=== PATIENT | female | born 1940 | race Two or more races ===

== ENCOUNTER 2017-09-13 20:10 | Emergency (ER) | payer OTHER ==
[2017-09-13] MEDS ORDERED: NA CHLORIDE 0.9% 1,000 ML ONE (22:15)
[2017-09-13] MEDS ORDERED: ONDANSETRON 4 MG/2 ML VIAL ONE (22:15)
[2017-09-13 22:25] LABS: Absolute Lymphocytes (CBC) 1.4 K/uL (0.7-4.9); Absolute Monocytes 1.4 K/uL (0.1-1.3); Absolute Neutrophil 8.4 K/uL (1.8-8.0); Basophils % 0.1 % (0-1.3); Eosinophils % 0.2 % (0-4.4); Lymphocytes % 12.3 % (15.3-44.8); MCH 29.8 pg (27.0-35.0); MCV 89.7 fL (80-100); MPV 7.4 fL (7.6-11.3); Monocytes % 12.9 % (3.3-12.3); RBC Red Blood Cell Count 3.13 M/uL (3.86-4.86)
--- NOTE | 2017-09-13 22:29 | RAD REPORT ---
EXAM DESCRIPTION: RAD - Chest Single View - 09/13/2017 10:06 pm CLINICAL HISTORY: Cough, fever COMPARISON: None. TECHNIQUE: AP portable chest image was obtained 2154 hours . FINDINGS: Lungs are clear. Heart and vasculature are normal. No measurable pleural effusion and no p neumothorax. No gross bony abnormality seen. No acute aortic findings suspected. IMPRESSION: No acute cardiopulmonary process.
[2017-09-13 22:33] LABS: Protime INR 0.92
[2017-09-13 22:42] LABS: Albumin 3.1 g/dL (3.2-5.5); Bilirubin Direct 0.3 mg/dL (0-0.2); Bilirubin Total 0.8 mg/dL (0.3-1.2); Magnesium 1.8 mg/dL (1.8-2.5)
[2017-09-13 22:46] LABS: CKMB Creatine Kinase MB 1.4 ng/ml (0.3-4.0)
[2017-09-13 22:57] LABS: Potassium 3.5 mEq/L (3.6-5.0)
[2017-09-14 00:43] LABS: Urine Blood 2+ (NEG); Urine Glucose NEGATIVE (NEG); Urine Protein 1+ (NEG); Urine Specific Gravity 1.005 (1.005-1.030)
--- NOTE | 2017-09-14 00:51 | EDPHYS ---
Physician Documentation [facility] Name: Keenan Mancuso Age: 77 yrs Sex: Female : 1940 Arrival Date: 09/13/2017 Time: 20:11 Bed 24 Private MD: Kin Perez ED Physician Markos Madera HPI: 09/13 21:29 This 77 yrs old Female presents to ER via Ambulatory with complaints of Fever, Doesn't kav Feel Right. 09/14 00:45 The patient reports fever, that was measured at 102 degrees Fahrenheit, with an [facility] temperature of 98.3 degrees Fahrenheit. Onset: The symptoms/episode began/occurred acutely, 2 day(s) ago. Modifying factors: there are no obvious modifying factors. Associated signs and symptoms: Pertinent positives: nausea, vomiting. Associated signs and symptoms: Pertinent negatives: abdominal pain, altered mental status, chest pain, diarrhea, myalgias, night sweats, sinus congestion, sinus drainage, shortness of breath, swelling. Severity of symptoms: At their worst the symptoms were moderate just prior to arrival. The patient has not experienced similar symptoms in the past. The patient has not recently seen a physician. patient reports vomiting x 2 days, fever. denies chest pain, abdominal pain; pmhx: ckd. Historical: - Allergies: 09/13 20:23 Aspirin; aj 20:23 Codeine; aj - Home Meds: 20:23 losartan oral oral [Active]; Metoprolol Tartrate Oral [Active]; Actos Oral [Active]; aj Celebrex Oral [Active]; Synthroid Oral [Active]; Aspirin Oral [Active]; - PMHx: 20:23 Diabetes - NIDDM; gastric ulcers; High Cholesterol; Hypertension; Hypothyroidism; aj 09/14 00:16 Renal Disease; tl3 - PSHx: 09/13 20:23 Carpal Tunnel Repair; perforated ulcer- stomach; aj - Immunization history:: Adult Immunizations up to date. - Social history:: Smoking status: Patient/guardian denies using tobacco. - Family history:: not pertinent. - Hospitalizations: : No recent hospitalization is reported. ROS: 09/14 00:47 Eyes: Negative for injury, pain, redness, and discharge, ENT: Negative for injury, kav pain, and discharge, Neck: Negative for injury, pain, and swelling, Cardiovascular: Negative for chest pain, palpitations, and edema, Respiratory: Negative for shortness of breath, cough, wheezing, and pleuritic chest pain, Back: Negative for injury and pain, : Negative for injury, bleeding, discharge, and swelling, MS/Extremity: Negative for injury and deformity, Skin: Negative for injury, rash, and discoloration, Neuro: Negative for headache, weakness, numbness, tingling, and seizure, Psych: Negative for depression, anxiety, suicide ideation, homicidal ideation, and hallucinations, Allergy/Immunology: Negative for hives, rash, and allergies, Endocrine: Negative for neck swelling, polydipsia, polyuria, polyphagia, and marked weight changes, Hematologic/Lymphatic: Negative for swollen nodes, abnormal bleeding, and unusual bruising. Constitutional: Positive for fever, poor PO intake, Negative for body aches, chills, fatigue, malaise, weight loss. Abdomen/GI: Positive for nausea and vomiting. Exam: 00:47 Constitutional: This is a well developed, well nourished patient who is awake, alert, kav and in no acute distress. Head/Face: Normocephalic, atraumatic. Eyes: Pupils equal round and reactive to light, extra-ocular motions intact. Lids and lashes normal. Conjunctiva and sclera are non-icteric and not injected. Cornea within normal limits. Periorbital areas with no swelling, redness, or edema. ENT: Nares patent. No nasal discharge, no septal abnormalities noted. Tympanic membranes are normal and external auditory canals are clear. Oropharynx with no redness, swelling, or masses, exudates, or evidence of obstruction, uvula midline. Mucous membranes moist. Neck: Trachea midline, no thyromegaly or masses palpated, and no cervical lymphadenopathy. Supple, full range of motion without nuchal rigidity, or vertebral point tenderness. No Meningismus. Chest/axilla: Normal chest wall appearance and motion. Nontender with no deformity. No lesions are appreciated. Cardiovascular: Regular rate and rhythm with a normal S1 and S2. No gallops, murmurs, or rubs. Normal PMI, no JVD. No pulse deficits. Respiratory: Lungs have equal breath sounds bilaterally, clear to auscultation and percussion. No rales, rhonchi or wheezes noted. No increased work of breathing, no retractions or nasal flaring. Back: No spinal tenderness. No costovertebral tenderness. Full range of motion. Female : Normal external genitalia. Skin: Warm, dry with normal turgor. Normal color with no rashes, no lesions, and no evidence of cellulitis. MS/ Extremity: Pulses equal, no cyanosis. Neurovascular intact. Full, normal range of motion. Neuro: Awake and alert, GCS 15, oriented to person, place, time, and situation. Cranial nerves II-XII grossly intact. Motor strength 5/5 in all extremities. Sensory grossly intact. Cerebellar exam normal. Normal gait. 00:47 Abdomen/GI: Bowel sounds: normal, in all quadrants, Palpation: abdomen is soft and non-tender, in all quadrants. Vital Signs: 09/13 20:23 BP 132 / 56; Pulse 105; Resp 21; Temp 98.3; Pulse Ox 98% on R/A; Weight 50.8 kg; Height aj 4 ft. 11 in. (149.86 cm); 20:30 BP 127 / 56; Pulse 89; Resp 16; Pulse Ox 98% on R/A; tl3 22:38 BP 138 / 62; Pulse 85; Resp 18; Pulse Ox 100% on R/A; tl3 09/14 00:15 BP 110 / 44; Pulse 82; Resp 18; Pulse Ox 98% on R/A; tl3 09/13 20:23 Body Mass Index 22.62 (50.80 kg, 149.86 cm) aj MDM: 09/13 21:30 Medical screening is not applicable. [facility] 09/14 00:47 Data reviewed: vital signs, nurses notes, lab test result(s), radiologic studies. [facility] 09/13 21:32 Order name: Basic Metabolic Panel; Complete Time: 23:05 [facility] 09/13 23:05 Interpretation: GLUC 126; CA 8.1; BUN 23; CRE 1.42; GFR 36; NA 122; K 3.5; CL 90. [facility] 09/13 21:32 Order name: BNP; Complete Time: 23:06 [facility] 09/13 23:06 Interpretation: Within normal limits. [facility] 09/13 21:32 Order name: CBC with Diff; Complete Time: 23:06 [facility] 09/13 23:07 Interpretation: WBC 11.2; RBC 3.13; HGB 9.3; HCT 28.0; MPV 7.4; PAMELLA% 74.5; LYM% 12.3; kav MN% 12.9; NEUT A 8.4; MNA 1.4. 09/13 21:33 Order name: Ckmb; Complete Time: 23:06 [facility] 09/13 23:06 Interpretation: Within normal limits. 09/13 21:33 Order name: CPK; Complete Time: 23:06 [facility] 09/13 23:06 Interpretation: Within normal limits. 09/13 21:33 Order name: LFT's; Complete Time: 23:06 [facility] 09/13 23:06 Interpretation: ALK 126; BILID 0.3; ALB 3.1; GLOB 3.9; A/G 0.8. 09/13 21:33 Order name: Magnesium; Complete Time: 23:06 [facility] 09/13 23:06 Interpretation: Within normal limits. 09/13 20:33 Order name: PT-INR; Complete Time: 23:06 [facility] 09/13 23:06 Interpretation: Within normal limits. 09/13 20:33 Order name: Ptt, Activated; Complete Time: 23:06 [facility] 09/13 23:06 Interpretation: Within normal limits. 09/13 21:33 Order name: Troponin (emerg Dept Use Only); Complete Time: 23:05 [facility] 09/13 23:05 Interpretation: Within normal limits. 09/13 21:33 Order name: XRAY Chest (1 view); Complete Time: 23:05 [facility] 09/13 23:05 Interpretation: No acute disease. [facility] 09/13 22:34 Order name: Urine Dipstick--Ancillary (enter results); Complete Time: 00:45 eb 09/14 00:45 Interpretation: UBLD 2+; UPROT 1+; UESTR 2+. [facility] 09/13 23:35 Order name: UA MICROSCOPIC tl3 09/13 23:36 Order name: Urine Microscopic Only EDMS 09/13 21:33 Order name: EKG; Complete Time: 21:33 [facility] 09/13 21:33 Order name: Cardiac monitoring; Complete Time: 22:58 [facility] 09/13 21:33 Order name: EKG - Nurse/Tech; Complete Time: 22:58 v 09/13 21:33 Order name: IV Saline Lock; Complete Time: 22:11 kav 09/13 21:33 Order name: Labs collected and sent; Complete Time: 22:11 kav 09/13 21:33 Order name: O2 Per Protocol; Complete Time: 22:11 kav 09/13 21:33 Order name: O2 Sat Monitoring; Complete Time: 22:11 kav 09/13 21:33 Order name: Urine Dipstick-Ancillary (obtain specimen); Complete Time: 23:10 kav Administered Medications: 09/13 22:30 Drug: NS 0.9% 1000 ml Route: IV; Rate: 1 bolus; Site: left wrist; Delivery: Primary tl3 tubing; 23:30 Follow up: IV Status: Completed infusion; IV Intake: 1000ml tl3 22:30 Drug: Zofran 4 mg Route: IVP; Infused Over: 2 mins; Site: left wrist; tl3 09/14 00:59 Follow up: Response: No adverse reaction tl3 09/13 23:34 Drug: NS 0.9% 1000 ml Route: IV; Rate: 1 bolus; Site: left wrist; Delivery: Primary tl3 tubing; 09/14 00:37 Follow up: IV Status: Completed infusion; IV Intake: 1000ml tl3 Disposition: 06:45 Co-signature as Attending Physician, Markos Madera MD I agree with the assessment and girish plan of care. Disposition: 09/14/17 00:51 Discharged to Home. Impression: Urinary tract infection, site not specified, Dehydration, Chronic kidney disease (CKD), Hypo-osmolality and hyponatremia. - Condition is Stable. - Discharge Instructions: Hyponatremia, Urinary Tract Infection, Bnrn-ae-[id number], Antibiotic Use, Jnws-ta-Oewq, Dehydration, Adult, [id number]-Cllx, Rehydration, Adult. - Prescriptions for Cipro 500 mg Oral Tablet - take 1 tablet by ORAL route every 12 hours for 7 days; 14 tablet. - Medication Reconciliation Form, Thank You Letter, Antibiotic Education, Prescription Opioid Use form. - Follow up: Kin Perez MD; When: 5 - 6 days; Reason: Recheck today's complaints, Continuance of care, Re-evaluation by your physician. - Problem is new. - Symptoms have improved. - Notes: clear pedialyte 8 oz three times a day x 2 days f/u with dr. perez Signatures: Dispatcher [employer] Janel Holt RN RN Markos Garza MD MD cha Vern, Katherine, MARKETING EXECUTIVE MARKETING EXECUTIVE Alexa Hyatt, RN RN tl3 Corrections: (The following items were deleted from the chart) 09/13 23:05 23:05 Normal except: GLUC 126; CA 8.1; BUN 23; CRE 1.42; GFR 36; NA 122; K 3.5. kav kav 23:06 23:06 Within normal limits. kav kav 23:07 23:06 Normal except: WBC 11.2; RBC 3.13; HGB 9.3; HCT 28.0; MPV 7.4; PAMELLA% 74.5; LYM% kav 12.3; MN% 12.9; NEUT A 8.4. kav 23:07 23:06 OrderId: [id number] PrecursorText: InterpretationText: kav kav 09/14 00:45 00:45 Normal except: UBLD 2+; UPROT 1+; UESTR 2+. kav kav 00:51 00:51 09/14/2017 00:51 Discharged to Home. Impression: Urinary tract infection, site kav not specified; Dehydration; Chronic kidney disease (CKD). Condition is Stable. Forms are Medication Reconciliation Form, Thank You Letter, Antibiotic Education, Prescription Opioid Use. Follow up: Kin Perez; When: 5 - 6 days; Reason: Recheck today's complaints, Continuance of care, Re-evaluation by your physician. Problem is new. Symptoms have improved. kav 00:59 00:51 09/14/2017 00:51 Discharged to Home. Impression: Urinary tract infection, site tl3 not specified; Dehydration; Chronic kidney disease (CKD); Hypo-osmolality and hyponatremia. Condition is Stable. Forms are Medication Reconciliation Form, Thank You Letter, Antibiotic Education, Prescription Opioid Use. Follow up: Kin Perez; When: 5 - 6 days; Reason: Recheck today's complaints, Continuance of care, Re-evaluation by your physician. Problem is new. Symptoms have improved. kav
--- NOTE | 2017-09-14 00:51 | ER ---
Nurse's Notes [facility] Name: Keenan Mancuso Age: 77 yrs Sex: Female : 1940 Arrival Date: 09/13/2017 Time: 20:11 Bed 24 Private MD: Kin Colvin Diagnosis: Urinary tract infection, site not specified;Dehydration;Chronic kidney disease (CKD);Hypo-osmolality and hyponatremia Presentation: 09/13 20:22 Presenting complaint: Patient states: Fever since Sunday. Given Tylenol at 1915. aj Transition of care: patient was not received from another setting of care. Onset of symptoms was September 10, 2017. Care prior to arrival: None. 20:22 Method Of Arrival: Ambulatory 20:22 Acuity: JULIANE 3 09/14 00:58 Initial Sepsis Screen: Does the patient meet any 2 criteria? No. Patient's initial tl3 sepsis screen is negative. Does the patient have a suspected source of infection? No. Patient's initial sepsis screen is negative. Triage Assessment: 09/13 20:23 General: Appears in no apparent distress. comfortable, Behavior is calm, cooperative, aj appropriate for age. Pain: Denies pain. Neuro: Level of Consciousness is awake, alert, obeys commands, Oriented to person, place, time, situation, Appropriate for age. Respiratory: Airway is patent Respiratory effort is even, unlabored, Respiratory pattern is regular, symmetrical. Derm: Skin is intact, is healthy with good turgor, Skin is pink, warm \T\ dry. normal. Historical: - Allergies: 20:23 Aspirin; aj 20:23 Codeine; aj - Home Meds: 20:23 losartan oral oral [Active]; Metoprolol Tartrate Oral [Active]; Actos Oral [Active]; aj Celebrex Oral [Active]; Synthroid Oral [Active]; Aspirin Oral [Active]; - PMHx: 20:23 Diabetes - NIDDM; gastric ulcers; High Cholesterol; Hypertension; Hypothyroidism; aj 09/14 00:16 Renal Disease; tl3 - PSHx: 09/13 20:23 Carpal Tunnel Repair; perforated ulcer- stomach; aj - Immunization history:: Adult Immunizations up to date. - Social history:: Smoking status: Patient/guardian denies using tobacco. - Family history:: not pertinent. - Hospitalizations: : No recent hospitalization is reported. Screenin:30 Abuse screen: Denies threats or abuse. Nutritional screening: No deficits noted. tl3 Tuberculosis screening: No symptoms or risk factors identified. Fall Risk None identified. Assessment: 20:30 General: Appears uncomfortable, slender, well groomed, well developed, well nourished, tl3 Behavior is calm, cooperative, appropriate for age. Pain: Complains of pain in abdomen. Neuro: Level of Consciousness is awake, alert, obeys commands, Oriented to person, place, time, situation, Appropriate for age. Cardiovascular: Heart tones S1 S2 present Patient's skin is warm and dry. Respiratory: Airway is patent Trachea midline Respiratory effort is even, unlabored, Respiratory pattern is regular, symmetrical. GI: Reports nausea. : No signs and/or symptoms were reported regarding the genitourinary system. EENT: No signs and/or symptoms were reported regarding the EENT system. Derm: No signs and/or symptoms reported regarding the dermatologic system. Musculoskeletal: No signs and/or symptoms reported regarding the musculoskeletal system. 22:38 Reassessment: Patient appears in no apparent distress at this time. No changes from tl3 previously documented assessment. Patient and/or family updated on plan of care and expected duration. Pain level reassessed. Patient is alert, oriented x 3, equal unlabored respirations, skin warm/dry/pink. IV infusing without difficulty, daughter at bedside. 09/14 00:15 Reassessment: Patient appears in no apparent distress at this time. No changes from tl3 previously documented assessment. Patient and/or family updated on plan of care and expected duration. Pain level reassessed. Patient is alert, oriented x 3, equal unlabored respirations, skin warm/dry/pink. Vital Signs: 09/13 20:23 BP 132 / 56; Pulse 105; Resp 21; Temp 98.3; Pulse Ox 98% on R/A; Weight 50.8 kg; Height aj 4 ft. 11 in. (149.86 cm); 20:30 BP 127 / 56; Pulse 89; Resp 16; Pulse Ox 98% on R/A; tl3 22:38 BP 138 / 62; Pulse 85; Resp 18; Pulse Ox 100% on R/A; tl3 09/14 00:15 BP 110 / 44; Pulse 82; Resp 18; Pulse Ox 98% on R/A; tl3 09/13 20:23 Body Mass Index 22.62 (50.80 kg, 149.86 cm) ED Course: 09/13 20:11 Patient arrived in ED. am2 20:11 Kin Colvin MD is Private Physician. am2 20:22 Triage completed. aj 20:23 Arm band placed on left wrist. Patient placed in an exam room. aj 20:30 Patient has correct armband on for positive identification. Bed in low position. Call tl3 light in reach. Side rails up X 1. Adult w/ patient. Pulse ox on. NIBP on. Warm blanket given. 20:30 No provider procedures requiring assistance completed. tl3 21:00 No apparent distress. tl3 21:00 Inserted saline lock: 20 gauge in left wrist, using aseptic technique. Blood collected. tl3 21:29 Lucita Dove FNP is PHCP. kav 21:29 Markos Madera MD is Attending Physician. kav 21:30 Lucita Dove FNP is PHCP. kav 21:30 Lucita Dove FNP is PHCP. kav 22:03 X-ray completed. Portable x-ray completed in exam room. Patient tolerated procedure sw well. 22:05 XRAY Chest (1 view) In Process Unspecified. EDMS 22:08 Alexa Pa, RN is Primary Nurse. tl3 09/14 00:37 UA MICROSCOPIC Sent. tl3 00:50 Kin Colvin MD is Referral Physician. kav 00:58 IV discontinued, intact, bleeding controlled, No redness/swelling at site. Pressure tl3 dressing applied. Administered Medications: 09/13 22:30 Drug: NS 0.9% 1000 ml Route: IV; Rate: 1 bolus; Site: left wrist; Delivery: Primary tl3 tubing; 23:30 Follow up: IV Status: Completed infusion; IV Intake: 1000ml tl3 22:30 Drug: Zofran 4 mg Route: IVP; Infused Over: 2 mins; Site: left wrist; tl3 09/14 00:59 Follow up: Response: No adverse reaction tl3 09/13 23:34 Drug: NS 0.9% 1000 ml Route: IV; Rate: 1 bolus; Site: left wrist; Delivery: Primary tl3 tubing; 09/14 00:37 Follow up: IV Status: Completed infusion; IV Intake: 1000ml tl3 Intake: 09/13 23:30 IV: 1000ml; Total: 1000ml. tl3 09/14 00:37 IV: 1000ml; Total: 2000ml. tl3 Outcome: 00:51 Discharge ordered by MD. acosta 00:58 Discharged to home ambulatory. tl3 00:58 Condition: stable 00:58 Discharge instructions given to patient, family, Instructed on discharge instructions, follow up and referral plans. medication usage, Demonstrated understanding of instructions, follow-up care, medications, Prescriptions given X 1. 00:59 Patient left the ED. tl3 Addendum: 09/17/2017 09:14 Addendum: Culture Results: Positive urine culture. No further action required. Bacteria i w sensitive to prescribed antibiotic. Signatures: Dispatcher [employer] Janel Holt RN RN aj Vern, Katherine, AUTOMOTIVE CENTER MANAGER AUTOMOTIVE CENTER MANAGER Lilliana Villegas RN RN iw Warren, Shannon sw Moreno, Amanda am2 Lowrey, Tammy, RN RN tl3
[2017-09-14 01:05] LABS: Urine Bacteria >50 /HPF (<20); Urine Culture Reflex Order REFLEXED
[2017-09-14 01:06] LABS: Urine RBC <5 /HPF (NONE SEEN)
--- NOTE | 2017-09-14 15:41 | EKG ---
Test Date: 2017-09-13 Test Time: 22:54:39 Smearer: SAVANNA MEASUREMENT RESULTS: Intervals: Rate: 83 NC: 168 QRSD: 92 QT: 388 QTc: 455 [place]: P: 43 NC: 168 QRS: 59 T: 32 INTERPRETIVE STATEMENTS: Normal sinus rhythm Normal ECG No previous ECG available for comparison Electronically Signed On 09-14-17 15:40:42 CDT by Hudson Cortez
== END 2017-09-14 00:59 | disposition home or self-care (01) ==
LOC: ER 20:10
DX: N39.0 Urinary tract infection, site not specified (principal); E86.0 Dehydration; N18.9 Chronic kidney disease, unspecified; E87.1 Hypo-osmolality and hyponatremia; Z88.6 Allergy status to analgesic agent; E11.9 Type 2 diabetes mellitus without complications; E03.9 Hypothyroidism, unspecified; I10 Essential (primary) hypertension; E78.00 Pure hypercholesterolemia, unspecified
CPT/HCPCS: 36415; 71045; 80048; 80076; 82550; 82553; 83735; 83880; 84484; 85025; 85610; 85730; 87077 ×2; 87086; 87088; 87186 ×2; 93005; 96361; 96374; 99284; J2405; J7030; 81003; 81015

== ENCOUNTER 2019-01-18 12:07 | Emergency (ER) | payer OTHER ==
--- OUTSIDE RECORDS SUMMARY | 2019-01-18 12:12 | XMS REPORT | Summary of Care ---
:1940 Author Organization [facility] Address [address] [place] [address] Encounter [facility] [id number] Date(s): 07/10/17 - 07/10/17 [facility] [address] [place] [address]- Final: Unilateral primary osteoarthritis, left knee Discharge Disposition: Discharged to Home or Self Care Attending Physician: Wilner Garcia MD Admitting Physician: Wilner Garcia MD Referring Physician: Wilner Garcia MD Vital Signs No data available for this section Problem List No data available for this section Allergies, Adverse Reactions, Alerts No data available for this section Medications No data available for this section Results No data available for this section Immunizations No data available for this section Procedures No data available for this section Social History No data available for this section Assessment and Plan No data available for this section
--- OUTSIDE RECORDS SUMMARY | 2019-01-18 12:12 | XMS REPORT | Continuity of Care Document ---
:1940 Author Organization [employer] Care Team Providers Name Role Phone Plum Baby Unavailable Unavailable Problems Problem Status Onset Classification Date Comments Source Date Reported Unilateral primary 08/24/2017 [facility] osteoarthritis, left 018 knee RT TOTAL KNEE Active Condition 05/29/2013 [facility] ARTHROPLAST[facility] OSTEOARTHRITIS KNEE Active [facility] RT, KNEE PAIN RT -- 013 [place] 715.96 - OSTEOARTHROS Active [facility] OPID [place] 012 [facility] HYPERTENSION Active Condition 05/29/2013 [facility] HYPERCHOLESTEROLEMIA Active Condition 05/29/2013 [facility] DIABETES, TYPE II Active Condition 05/29/2013 [place] [facility] ASTHMA Active Condition 05/29/2013 [place] [facility] Diabetes mellitus Active Problem 08/24/2017 bs range - [facility] (disorder) 004 140's Gastric ulcer Resolved Problem 08/24/2017 [facility] (disorder) 991 Hypertensive disorder, Active Problem 08/24/2017 mon by pcp- [facility] systemic arterial 974 denies any (disorder) other cardiac problems Arthritis (disorder) Active Problem 08/24/2017 [facility] Urinary bladder Active Problem 08/24/2017 [facility] structure (body structure) Cholesterol Active Problem 08/24/2017 [facility] (substance) Hand pain (finding) Active Problem 08/24/2017 [facility] Hypothyroidism Active Problem 08/24/2017 [facility] (disorder) Knee pain (finding) Active Problem 08/24/2017 LEFT [facility] Chronic kidney disease Active Problem 08/24/2017 stage 3- [facility] (disorder) reports no problems, states due to HTN. No dialysis KNEE PAIN, RIGHT Active Condition 05/29/2013 [facility] OSTEOARTHRITIS, KNEE, Active Condition 05/29/2013 [facility] CONTUSION, RIGHT KNEE Active Condition 05/29/2013 [facility] Acute peptic ulcer Resolved Problem 07/06/2012 [place] Carpal tunnel Inactive Problem 07/06/2012 [place] Cataract Resolved Problem 07/06/2012 [place] Diabetes mellitus Active Problem 07/06/2012 [place] Disc Active Problem 07/06/2012 [place] Hyperlipidemia Active Problem 07/06/2012 [place] Hypertension Active Problem 07/06/2012 [place] Hyperthyroidism Resolved Problem 07/06/2012 [place] Incontinence Active Problem 07/06/2012 [facility] medication [place] OSTEOARTHROS NOS-L/LEG Active [place] SINGLE LB/BY Active [place] Medications Medication Details Route Status Patient Ordering Order Source Instructions Provider Date Thyroxine 50 mcg=2 tabs, No Longer [facility] Tab, Oral, Active 2018 Every other day, first dose 08/23/17 6:30:00 CDT, Give M/W/F and alternate everyother day with 75 mcg NS bolus 250 mL 250 mL, IV, Inactive [facility] BOLUS, other 2018 (see comment), start date 08/22/17 18:36:00 CDT Aspirin 325 mg=1 tabs, Inactive [facility] Tab, Oral, BID, 2017 first dose 08/22/17 9:00:00 CDT multivitamin with 1 tabs, Tab, Inactive [facility] minerals Oral, Daily, 2018 first dose 08/22/17 9:00:00 CDT hydroCHLOROthiazid 25 mg=1 tabs, Inactive [facility] e Tab, Oral, 2018 Daily, first dose 08/22/17 9:00:00 CDT Cozaar 100 mg=2 tabs, Inactive 08/22/ [facility] Tab, Oral, 2018 Daily, first dose 08/22/17 9:00:00 CDT ferrous sulfate 325 mg=1 tabs, Inactive 08/22/ [facility] Tab, Oral, 2018 TIDWM, first dose 08/22/17 8:00:00 CDT Synthroid 50 mcg=2 tabs, Inactive 08/22/ [facility] Tab, Oral, 2018 Every other day, first dose 08/22/17 6:30:00 CDT, Give M/W/F and alternate everyother day with 75 mcg Thyroxine 88 mcg=1 tabs, No Longer [facility] Tab, Oral, Active 2017 Daily, first dose 08/22/17 6:30:00 CDT, Patient's Own Meds Cefazolin 1 gm, Soln-IV, No Longer [facility] IV Piggyback, Active 2017 q8hr, infuse over 30 minutes, order duration: 3 doses, first dose 08/21/17 23:30:00 CDT, stop date 08/22/17 23:29:00 CDT, DC THIS ORDER IF DOCUMENTED ANCEF ALLERGY, Prophylaxis Clindamycin 600 mg, Inactive I Soln-IV, IV 2018 Piggyback, q8hr, infuse over 30 minutes, order duration: 3 doses, first dose 08/21/17 22:00:00 CDT, stop date 08/22/17 21:59:00 CDT, GIVE ONLY IF ANCEF ALLERGIC, Prophylaxis Colace 100 mg=1 caps, No Longer [facility] Cap, Oral, BID, Active 2017 first dose 08/21/17 21:00:00 CDT Celebrex 200 mg=2 caps, No Longer [facility] Cap, Oral, BID, Active 2017 first dose 08/21/17 21:00:00 CDT Amlodipine 10 mg=2 tabs, Inactive [facility] Tab, Oral, 2018 Once, first dose 08/21/17 21:00:00 CDT, stop date 08/21/17 21:00:00 CDT Simvastatin 20 mg=1 tabs, No Longer [facility] Tab, Oral, qHS, Active 2017 first dose 08/21/17 21:00:00 CDT Clonidine 0.1 mg=1 tabs, No Longer [facility] Tab, Oral, q6hr Active 2017 PRN for hypertension, first dose 08/21/17 20:39:00 CDT Saline Lock Flush 10 mL, Soln, IV No Longer [facility] Push, q8hr, Active 2017 first dose 08/21/17 19:00:00 CDT Normal Saline 1,000 mL, IV, No Longer [facility] 1,000 mL 75 mL/hr, start Active 2017 date 08/21/17 18:53:00 CDT Tramadol 50 mg=1 tabs, No Longer [facility] Tab, Oral, q6hr 2017 PRN for pain mild-moderate (1-6), first dose 08/21/17 18:36:00 CDT Diphenhydramine 25 mg=1 caps, No Longer [facility] Cap, Oral, q8hr 2017 PRN for itching, first dose 08/21/17 18:36:00 CDT Morphine 2 mg=1 mL, No Longer [facility] Injection, IV 2017 Push, q3hr PRN for breakthrough pain, first dose 08/21/17 18:36:00 CDT Promethazine 25 mg=1 mL, No Longer [facility] Injection, IM, 2017 q4hr PRN for severe nausea, first dose 08/21/17 18:36:00 CDT Ondansetron 4 mg=2 mL, No Longer [facility] Injection, IV 2017 Push, q8hr PRN for nausea/vomiting , first dose 08/21/17 18:36:00 CDT Bupivacaine 0.25% 300 mL, Nerve No Longer [facility] 300 mL pump 300 mL Block, 5 mL/hr, 2017 start date 08/21/17 18:29:00 CDT Saline Lock Flush 10 mL, Soln, IV No Longer [facility] Push, As 2017 Indicated PRN for flush, first dose 08/21/17 18:12:00 CDT Flu Shot PF 0.5 mL, No Longer [facility] Injection, IM, 2017 Once PRN for other (see comment), first dose 08/21/17 18:12:00 CDT Bisacodyl 10 mg=2 tabs, No Longer [facility] Tab-DR, Oral, 2017 Daily PRN for constipation, first dose 08/21/17 18:12:00 CDT LR 1,000 mL 1,000 mL, IV, Inactive [facility] 75 mL/hr, start 2017 date 08/21/17 18:12:00 CDT Promethazine 12.5 mg=0.5 mL, Inactive [facility] Injection, IM, 2018 Once PRN for vomiting, first dose 08/21/17 18:03:00 CDT Levalbuterol 0.21 0.63 mg=3 mL, Inactive [facility] MG/ML Inhalant Soln, NEB, Once 2018 Solution [Xopenex] PRN for wheezing, first dose 08/21/17 18:03:00 CDT Ondansetron 4 mg=2 mL, Inactive [facility] Injection, IV 2018 Push, q15min PRN for nausea, order duration: 2 doses, first dose 08/21/17 18:03:00 CDT, stop date Limited # of times Hydralazine 5 mg=0.25 mL, Inactive [facility] Injection, IV 2018 Push, As Indicated PRN for hypertension, first dose 08/21/17 18:03:00 CDT Labetalol 5 mg=1 mL, Inactive [facility] Injection, IV 2018 Push, As Indicated PRN for hypertension, first dose 08/21/17 18:03:00 CDT Albuterol 0.83 2.5 mg=3 mL, Inactive [facility] MG/ML Inhalant Soln, NEB, Once 2018 Solution PRN for wheezing, first dose 08/21/17 18:03:00 CDT Demerol HCl 12.5 mg=0.5 mL, Inactive [facility] Injection, IV 2018 Push, Once PRN for shivers, first dose 08/21/17 18:03:00 CDT Dilaudid 0.2 mg=0.2 mL, Inactive [facility] Injection, IV 2018 Push, q10min PRN for pain severe (7-10), first dose 08/21/17 18:03:00 CDT Bupivacaine 0.25% 300 mL, Nerve Inactive [facility] 300 mL pump 300 mL Block, 5 mL/hr, 2018 start date 08/21/17 18:03:00 CDT Robinul 0.2 mg=1 mL, Inactive [facility] Injection, IV 2018 Push, Once PRN for bradycardia, first dose 08/21/17 18:03:00 CDT, Heart Rate Saline Lock Flush 10 mL, Soln, IV Inactive [facility] Push, As 2018 Indicated PRN for flush, first dose 08/21/17 18:03:00 CDT LR 1,000 mL 1,000 mL, IV, Inactive [facility] 75 mL/hr, start 2018 date 08/21/17 18:03:00 CDT Lactated Ringers IV, start date Inactive 08/21/ [facility] Injection 08/21/172017 17:58:00 CDT, stop date 08/21/17 17:58:00 CDT fentaNYL 25 mcg=0.5 mL, Inactive [facility] Injection, IV, 2017 Once, first dose 08/21/17 17:46:00 CDT, stop date 08/21/17 17:46:00 CDT phenylephrine 0.1 mg=0.01 mL, Inactive [facility] Injection, IV, 2017 Once, first dose 08/21/17 17:21:00 CDT, stop date 08/21/17 17:21:00 CDT phenylephrine 0.1 mg=0.01 mL, Inactive [facility] Injection, IV, 2017 Once, first dose 08/21/17 17:11:00 CDT, stop date 08/21/17 17:11:00 CDT ondansetron 4 mg=2 mL, Inactive [facility] Injection, IV, 2017 Once, first dose 08/21/17 17:10:00 CDT, stop date 08/21/17 17:10:00 CDT fentaNYL 25 mcg=0.5 mL, Inactive [facility] Injection, IV, 2017 Once, first dose 08/21/17 16:34:00 CDT, stop date 08/21/17 16:34:00 CDT insulin regular 3 - 15 units, No Longer I sliding scale Injection, Active 2017 [facility] Subcutaneous, QIDACHS, first dose 08/21/17 16:30:00 CDT midazolam 1 mg=1 mL, Inactive [facility] Injection, IV, 2017 Once, first dose 08/21/17 16:13:00 CDT, stop date 08/21/17 16:13:00 CDT fentaNYL 50 mcg=1 mL, Inactive [facility] Injection, IV, 2017 Once, first dose 08/21/17 16:13:00 CDT, stop date 08/21/17 16:13:00 CDT phenylephrine 0.1 mg=0.01 mL, Inactive [facility] Injection, IV, 2018 Once, first dose 08/21/17 16:08:00 CDT, stop date 08/21/17 16:08:00 CDT tranexamic acid 600 mg=6 mL, Inactive [facility] Soln, IV, Once, 2018 first dose 08/21/17 16:06:00 CDT, stop date 08/21/17 16:06:00 CDT ePHEDrine 10 mg=0.2 mL, Inactive [facility] Injection, IV, 2018 Once, first dose 08/21/17 16:04:00 CDT, stop date 08/21/17 16:04:00 CDT acetaminophen 1,000 mg, Inactive [facility] Soln-IV, IV 2018 Piggyback, Once, first dose 08/21/17 16:02:00 CDT, stop date 08/21/17 16:02:00 CDT ePHEDrine 5 mg=0.1 mL, Inactive [facility] Injection, IV, 2018 Once, first dose 08/21/17 15:58:00 CDT, stop date 08/21/17 15:58:00 CDT ceFAZolin 2 gm, Soln-IV, Inactive [facility] IV Piggyback, 2018 Once, first dose 08/21/17 15:55:00 CDT, stop date 08/21/17 15:55:00 CDT dexamethasone 8 mg=2 mL, Inactive [facility] Injection, IV, 2018 Once, first dose 08/21/17 15:53:00 CDT, stop date 08/21/17 15:53:00 CDT propofol 100 mg=10 mL, Inactive [facility] Emulsion, IV, 2018 Once, first dose 08/21/17 15:45:00 CDT, stop date 08/21/17 15:45:00 CDT lidocaine 3 mL, Inactive [facility] Injection, IV, 2018 Once, first dose 08/21/17 15:45:00 CDT, stop date 08/21/17 15:45:00 CDT Misc Medication 1,000 mL, Inactive [facility] Soln-IV, IV, 2018 Once, first dose 08/21/17 15:40:00 CDT, stop date 08/21/17 15:40:00 CDT midazolam 1 mg=1 mL, Inactive [facility] Injection, IV, 2018 Once, first dose 08/21/17 15:36:00 CDT, stop date 08/21/17 15:36:00 CDT fentaNYL 50 mcg=1 mL, Inactive [facility] Injection, IV, 2018 Once, first dose 08/21/17 15:36:00 CDT, stop date 08/21/17 15:36:00 CDT celecoxib 200 MG 200 mg=1 caps, Active [facility] Oral Capsule Oral, Daily, # 2018 [Celebrex] 30 caps, 3 Refill(s) gabapentin 300 MG 300 mg=1 caps, Active [facility] Oral Capsule Oral, qHS, # 14 2018 caps Aspirin 81 MG Oral 81 mg=1 tabs, Active [facility] Tablet Oral, BID, take 2018 for 6 weeks Docusate Sodium 100 mg=1 caps, Active [facility] 100 MG Oral Oral, BID 2018 Capsule [Colace] Acetaminophen 325 1 tabs, Oral, Active [facility] MG / Hydrocodone q6hr, PRN as 2018 Bitartrate 10 MG needed for Oral Tablet [[place] pain, # 90 10/325] tabs, 0 Refill(s) gabapentin 300 mg=1 caps, No Longer [facility] Cap, Oral, TID, Active 2018 first dose 08/21/17 14:00:00 CDT Celebrex 400 mg=4 caps, Inactive [facility] Cap, Oral, 2018 Once, first dose 08/21/17 14:00:00 CDT, stop date 08/21/17 14:00:00 CDT Cefazolin 2 gm, Soln-IV, Inactive [facility] IV Piggyback, 2018 Once, infuse over 30 minutes, first dose 08/21/17 14:00:00 CDT, stop date 08/21/17 14:00:00 CDT, patient weight 50-120 kg, Prophylaxis Neurontin 300 mg=1 caps, Inactive [facility] Cap, Oral, 2018 Once, first dose 08/21/17 14:00:00 CDT, stop date 08/21/17 14:00:00 CDT, Give 1 hour pre-operatively Lidocaine 2% 0.2 0.2 mL, Inactive mL IV Start Injection, 2017 [[facility]] Subcutaneous, Once PRN for other (see comment), first dose 08/21/17 13:17:00 CDT LR 1,000 mL 1,000 mL, IV, Inactive I 30 mL/hr, start 2018 date 08/21/17 13:17:00 CDT Oxycontin 10 mg=1 tabs, Inactive Tab-ER, Oral, 2017 Pre Op, first dose 08/21/17 13:17:00 CDT Tranexamic Acid 1 gm, Soln, IV, Inactive As Indicated, 2017 first dose 08/21/17 13:17:00 CDT, 30 min prior to incision and at closure Detrol LA 4 mg 4 mg, Misc, No Longer oral capsule, Oral, Daily, Active 2017 extended release first dose 08/21/17 9:00:00 CDT, Patient's Own Meds Actos 30 mg=1 tabs, No Longer I Tab, Oral, Active 2017 Daily, first dose 08/21/17 9:00:00 CDT, Patient's Own Meds Metoprolol 100 mg=4 tabs, No Longer [facility] Tab-ER, Oral, Active 2017 Daily, first dose 08/21/17 9:00:00 CDT hydrochlorothiazid 1 tabs, Misc, Inactive e-losartan 25 Oral, Daily, 2018 mg-100 mg oral first dose tablet 08/21/17 9:00:00 CDT, Patient's Own Meds Amlodipine 10 mg=2 tabs, No Longer [facility] Tab, Oral, Active 2017 Daily, first dose 08/21/17 9:00:00 CDT amLODIPine 10 mg 10 mg=1 tabs, Active [facility] oral tablet Oral, Daily, 2018 take am of procedure, 0 Refill(s), HTN simvastatin 20 mg 20 mg=1 tabs, Active [facility] oral tablet Oral, qHS, 0 2017 Refill(s), cholesterol levothyroxine 88 88 mcg=1 caps, Active [facility] mcg (0.088 mg) Oral, Daily, 0 2017 oral capsule Refill(s), thyroid 24 HR tolterodine 4 mg=1 caps, Active 07/31/ [facility] tartrate 4 MG Oral, Daily, 0 2017 Extended Release Refill(s), Capsule [Detrol] bladder Hydrochlorothiazid 1 tabs, Oral, Active [facility] e 25 MG / Losartan Daily, do not 2018 Potassium 100 MG take am of Oral Tablet procedure, 0 Refill(s), HTN 24 HR Metoprolol 100 mg=1 tabs, Active 07/31/ [facility] Tartrate 100 MG Oral, Daily, 2018 Extended Release take am of Tablet procedure, 0 Refill(s), HTN pioglitazone 30 MG 30 mg=1 tabs, Active 07/31/ [facility] Oral Tablet Oral, Daily, 0 2017 [Actos] Refill(s), DM gabapentin 300 MG 300 mg=1 caps, Active [facility] Oral Capsule Oral, TID, 0 2017 Refill(s), hand nerve pain Ultram 50 mg oral 50 mg, 1 tab, PO Active [facility] tablet PO, Q4H, PRN, 2012 [place] 60 tab, Pain Score 1-3, Substitution Allowed, TAB ferrous sulfate 324 mg, 1 tab, PO Active [facility] 324 mg oral tablet PO, [id number], 2012 [place] 90 tab, Substitution Allowed, TAB amLODipine 10 mg, 2 tab, PO No Longer [facility] Sugar Route: PO, Drug Active 2012 [place] form: TAB, Daily, Dosing Weight 63.182, kg, Start date: 07/04/12 9:00:00, Duration: 30 day, Stop date: 08/02/12 9:00:00 BD Posiflush SF 15 mL, Route: IVP No Longer [facility] IVP, Drug Form: Active 2012 INJ, PRN, PRN Line Flush, Start date: 07/03/12 6:30:00, Duration: 30 day, Stop date: 08/02/12 7:29:00 Levothroid 50 microgram, 1 PO No Longer [facility] Sugar tab, Route: PO, Active 2012 Drug form: TAB, Q630AM, Start date: 07/03/12 6:30:00, Duration: 30 day, Stop date: 08/01/12 6:30:00 Protonix 40 mg, Route: PO No Longer David 07/03/ Sugar PO, Daily, Active 2012 Dosing Weight 63.182, kg, Start date: 07/02/12 20:58:00, Duration: 30 day, Stop date: 08/01/12 9:00:00 metoprolol 50 mg, 1 tab, PO No Longer [facility] Route: PO, Drug Active 2012 [place] form: ERTAB, Daily, Start date: 07/02/12 9:09:00, Duration: 30 day, Stop date: 08/01/12 9:00:00 Celebrex 400 mg, 4 cap, PO No Longer [facility] Route: PO, Drug Active 2012 [place] form: CAP, Daily, Dosing Weight 63.636, kg, Start date: 07/02/12 9:00:00, Duration: 30 day, Stop date: 07/31/12 9:00:00 levothyroxine 75 microgram, PO No Longer [facility] Route: PO, Drug Active 2012 [place] form: TAB, Daily, Dosing Weight 63.182, kg, Start date: 07/02/12 9:00:00, Duration: 30 day, Stop date: 07/31/12 9:00:00 enoxaparin 40 mg, 0.4 mL, SUB-Q No Longer [facility] Route: SUB-Q, 2012 Drug form: INJ, Daily, Dosing Weight 63.636, kg, Start date: 07/02/12 8:00:00, Duration: 30 day, Stop date: 07/31/12 8:00:00 Levothroid 75 microgram, PO No Longer [facility] 1.5 tab, Route: Active 2012 PO, Drug form: TAB, Q630AM, Start date: 07/02/12 6:43:00, Duration: 30 day, Stop date: 08/01/12 6:30:00 Protonix 40 mg, 1 tab, PO No Longer [facility] Route: PO, Drug Active 2012 [place] form: ECTAB, Daily, Dosing Weight 63.182, kg, Start date: 07/01/12 21:01:00, Duration: 30 day, Stop date: 07/31/12 9:00:00 Senokot S oral 1 tab, Route: PO No Longer Pope // [facility] Sugar tablet PO, Drug Form: 2012 [facility] TAB, Dosing Weight 63.636, kg, Bedtime, if no bowel movement in the last 24 hours, Start date: 07/01/12 21:00:00, Duration: 30 day, Stop date: 07/30/12 21:00:00 simvastatin 20 mg, 1 tab, PO No Longer David 07/02/ MH Sugar Route: PO, Drug Active 2012 [facility] form: TAB, Bedtime, Dosing Weight 63.182, kg, Start date: 07/01/12 21:00:00, Duration: 30 day, Stop date: 07/30/12 21:00:00 Maalox Advanced 30 mL, Route: PO No Longer David 07/02/ [facility] Regular Strength PO, Drug Form: Active 2012 [facility] SUSP SUSP, Dosing Weight 63.182, kg, QID, PRN Indigestion, Start date: 07/01/12 20:59:00, Duration: 30 day, Stop date: 07/31/12 20:58:00 cefazolin (SCIP) + 1 gm, Route: IVPB No Longer Pope 07/02/ Sugar Sodium Chloride IVPB, Q8H, Active 2012 [facility] 0.9% IV 100 mL Dosing Weight 63.636, kg, Start date: 07/01/12 18:00:00, Duration: 3 doses or times, Stop date: 07/02/12 10:00:00 Dextrose 50% 12.5 gm, 25 mL, IVP No Longer David 07/01/ Sugar Syringe Route: IVP, Active 2012 Drug Form: INJ, Dosing Weight 63.182, kg, PRN, PRN Blood Glucose Results, Start date: 07/01/12 17:11:00, Duration: 30 day, Stop date: 07/31/12 18:10:00 glucagon 1 mg, Route: IM No Longer David 07/01/ MH Sugar IM, Drug form: Active 2012 [facility] PDR/INJ, PRN, Dosing Weight 63.182, kg, PRN Blood Glucose Results, Start date: 07/01/12 17:11:00, Duration: 30 day, Stop date: 07/31/12 18:10:00 insulin aspart 2 unit, 0.02 SUB-Q No Longer [facility] mL, Route: Active 2012 [place] SUB-Q, Drug form: SOLN, TID-Before Meals, Dosing Weight 63.182, kg, PRN Blood Glucose Results, Start date: 07/01/12 17:11:00, Duration: 30 day, Stop date: 07/31/12 17:10:00 Blink Tears eye Blink Tears eye BOTH Active Sugar drops drops, 1-2 EYES 2012 [place] drop, BOTH EYES, Daily, PRN, as needed for dry eyes, Substitution Allowed ranitidine 150 mg 150 mg, 1 tab, PO Active Sugar oral tablet PO, BID, PRN, 2012 [place] as needed for heart burn, Substitution Allowed acetaminophen 500 mg, PO, PO Active Sugar Q6H, PRN, as 2012 [place] needed for pain, Substitution Allowed, CAP Nasonex 50 mcg/inh 2 spray, NASAL, NASAL Active Sugar nasal spray BID, PRN as 2012 [place] needed for allergy symptoms, Substitute Allowed metoprolol 50 mg 50 mg, 1 tab, PO Active Sugar oral tablet, PO, Daily, 2012 extended release Substitution Allowed gabapentin 300 mg 300 mg, 1 cap, PO No Longer David Sugar oral capsule Route: PO, Drug Active 2012 [place] form: CAP, TID, Dosing Weight 63.182, kg, Start date: 07/01/12 17:00:00, Duration: 30 day, Stop date: 07/31/12 13:00:00 Levothroid Route: PO, Drug PO No Longer David 07/01/ Sugar form: TAB, Active 2012 [place] Q630AM, Priority: NOW, Start date: 07/01/12 16:25:00, Stop date: 07/31/12 6:30:00 acetaminophen 10 1,000 mg, 100 IV No Longer [facility] Sugar mg/mL intravenous mL, Route: IV, Active 2012 [facility] solution Drug form: INJ, ONCE, Dosing Weight 63.636, kg, PRN Pain, For > or=50 kg, Start date: 07/01/12 12:34:00 acetaminophen-oxyc 1 tab, Route: PO No Longer Magdy 07/01/ Sugar odone 325 mg-5 mg PO, Drug Form: Active 2012 [facility] oral tablet TAB, Dosing Weight 63.636, kg, Q4H, PRN Pain Score 4-6, Start date: 07/01/12 12:25:00, Duration: 30 day, Stop date: 07/31/12 12:24:00 naloxone 0.04 mg, 0.1 IVP No Longer Magdy // MH Sugar mL, Route: IVP, 2012 [facility] Drug form: INJ, Q2MIN, Dosing Weight 63.636, kg, PRN Narcotic Reversal, Start date: 07/01/12 12:25:00, Duration: 30 day, Stop date: 07/31/12 13:24:00 ropivacaine 0.2% Dosing: Per NERVE No Longer Magdy 07/01/ MH Sugar in NS 200 mL - Nerve Block BLOCK Active 2012 [facility] site 1 200 mL Dosing Order, Route: NERVE BLOCK, Start date: 07/01/12 12:25:00 200 mL, Drug Form: SOLN, Dosing Weight 63.636, kg, Duration: 30 day, Stop date: 07/31/12 12:24:00 ondansetron 4 mg, 2 mL, IVP No Longer Magdy // MH Sugar Route: IVP, 2012 [facility] Drug form: INJ, ONCE, Dosing Weight 63.636, kg, PRN Nausea & Vomiting, Start date: 07/01/12 12:25:00, Duration: 1 doses or times, Stop date: Limited # of times ropivacaine 0.1% Dosing: Per NERVE No Longer Marion // MH Sugar in NS - site 2 250 Nerve Block BLOCK Active 2012 mL Dosing Order, Route: NERVE BLOCK, Start date: 07/01/12 11:42:00 250 mL, Dosing Weight 63.636, kg, Duration: 30 day, Stop date: 07/31/12 12:41:00 naloxone 0.04 mg, 0.1 IVP No Longer Marion 07/01/ MH Sugar mL, Route: IVP, 2012 [facility] Drug form: INJ, Q2MIN, Dosing Weight 63.636, kg, PRN Narcotic Reversal, Start date: 07/01/12 11:42:00, Duration: 30 day, Stop date: 07/31/12 12:41:00 acetaminophen-oxyc 1 tab, Route: PO No Longer [facility] Sugar odone 325 mg-5 mg PO, Drug Form: 2012 [facility] oral tablet TAB, Dosing Weight 63.636, kg, Q4H, PRN Pain Score 4-6, Start date: 07/01/12 11:42:00, Duration: 30 day, Stop date: 07/31/12 11:41:00 ondansetron 4 mg, 2 mL, IVP No Longer [facility] Sugar Route: IVP, 2012 [facility] Drug form: INJ, ONCE, Dosing Weight 63.636, kg, PRN Nausea & Vomiting, Start date: 07/01/12 11:42:00, Duration: 1 doses or times, Stop date: Limited # of times meperidine 12.5 mg, 0.5 IVP No Longer [facility] Sugar mL, Route: IVP, 2012 [facility] Drug form: INJ, Q30Min, Dosing Weight 63.636, kg, PRN Other -See Comment, For shivering, Start date: 07/01/12 11:42:00, Duration: 2 doses or times, Stop date: Limited # of times morphine Sulfate 2 mg, 1 mL, IVP No Longer [facility] Sugar Route: IVP, 2012 [facility] Drug form: INJ, Q5Min, Dosing Weight 63.636, kg, PRN Pain Score 4-6, Start date: 07/01/12 11:42:00, Duration: 8 doses or times, Stop date: Limited # of times flumazenil 0.2 mg, 2 mL, IVP No Longer Marion Sugar Route: IVP, 2012 [facility] Drug form: INJ, PRN, Dosing Weight 63.636, kg, PRN Benzodiazepine Reversal, Initial dose, Start date: 07/01/12 11:42:00, Duration: 30 day, Stop date: 07/31/12 12:41:00 acetaminophen-hydr 1 tab, Route: PO No Longer Marion Sugar ocodone 325 mg-5 PO, Drug Form: Active 2012 [place] mg oral tablet TAB, Dosing Weight 63.636, kg, Q4H, PRN Pain Score 1-3, Start date: 07/01/12 11:42:00, Duration: 30 day, Stop date: 07/31/12 11:41:00 Lactated Ringers 1,000 mL, Rate: IV No Longer [facility] Sugar Injection IV 1,000 50 ml/hr, Active 2012 [place] mL Infuse over: 20 hr, Route: IV, kg, Total Volume: 1,000, Start date: 07/01/12 11:42:00, Duration: 30 day, Stop date: 07/31/12 11:41:00 Ambien 5 mg, 1 tab, PO No Longer Radha Sugar Route: PO, Drug Active 2012 [place] form: TAB, Bedtime, Dosing Weight 63.636, kg, PRN Insomnia, may repeat X1 in one hour if ineffective, Start date: 07/01/12 9:45:00, Duration: 30 day, Stop date: 07/31/12 9:44:00 Fleet Enema 133 ml, Route: ID No Longer Radha Saida ID, Drug Form: Active 2012 [place] CHRISTIAN, Dosing Weight 63.636, kg, ONCE, if no bowel movement and patient symptomatic, Start date: 07/01/12 9:45:00, Stop date: 07/01/12 9:45:00 diphenhydrAMINE 25 mg, 1 tab, PO No Longer Radha Sugar Route: PO, Drug Active 2012 [place] form: TAB, Q6H, Dosing Weight 63.636, kg, PRN as needed for itching, or rash, Start date: 07/01/12 9:45:00, Duration: 30 day, Stop date: 07/31/12 9:44:00 morphine Sulfate 2 mg, 1 mL, IVP No Longer Radha Sugar Route: IVP, Active 2012 Drug form: INJ, Q3H, Dosing Weight 63.636, kg, PRN Pain Score 7-10, may repeat dosage X1 before next scheduled dose hours if pain unrelieved, Start date: 07/01/12 9:45:00, Duration: 30 day, Stop date: 07/31/12 9:44:00 ondansetron 4 mg, 2 mL, IVP No Longer [facility] Sugar Route: IVP, 2012 [facility] Drug form: INJ, Q4H, Dosing Weight 63.636, kg, PRN Nausea & Vomiting, Start date: 07/01/12 9:45:00, Duration: 30 day, Stop date: 07/31/12 9:44:00 docusate 100 mg, 10 mL, ID No Longer [facility] Route: ID, Drug Active 2012 [place] form: LIQ, Q6H, Dosing Weight 63.636, kg, PRN Constipation, Start date: 07/01/12 9:45:00, Duration: 30 day, Stop date: 07/31/12 9:44:00 Ultram 50 mg oral 50 mg, 1 tab, PO No Longer [facility] tablet Route: PO, Drug Active 2012 [place] form: TAB, Q4H, Dosing Weight 63.636, kg, PRN Pain Score 1-3, Start date: 07/01/12 9:45:00, Duration: 30 day, Stop date: 07/31/12 9:44:00 LR IV 1,000 mL 1,000 mL, Rate: IV No Longer Pope Sugar 70 ml/hr, 2012 Infuse over: 14.3 hr, Route: IV, kg, Total Volume: 1,000, Start date: 07/01/12 9:45:00, Duration: 30 day, Stop date: 07/31/12 9:44:00 [place] 10/325 oral 2 tab, Route: PO No Longer Pope Sugar tablet PO, Drug Form: Active 2012 TAB, Dosing Weight 63.636, kg, Q4H, PRN Pain, Start date: 07/01/12 9:45:00, Duration: 30 day, Stop date: 07/31/12 9:44:00 Robaxin 1,500 mg, 2 PO No Longer David Sugar tab, Route: PO, Active 2012 Drug form: TAB, BID, Dosing Weight 63.636, kg, PRN Spasm, Start date: 07/01/12 9:45:00, Duration: 30 day, Stop date: 07/31/12 9:44:00 acetaminophen 975 mg, 3 tab, PO No Longer [facility] Route: PO, Drug Active 2012 [place] form: TAB, Q6H, Dosing Weight 63.636, kg, PRN Pain/Fever, temp >101.5F, Start date: 07/01/12 9:45:00, Duration: 30 day, Stop date: 07/31/12 9:44:00 Lactated Ringers 1,000 mL, Rate: IV No Longer [place] Sugar Injection IV 1000 25 ml/hr, Active 2012 [place] mL Infuse over: 40 hr, Route: IV, Dosing Weight 63.636 kg, Total Volume: 1,000, Start date: 07/01/12 7:33:00, Duration: 30 day, Stop date: 07/31/12 7:32:00 Lactated [place] 1,000 mL, Rate: IV No Longer [facility] Sugar Injection IV 1,000 100 ml/hr, Active 2012 mL Infuse over: 10 hr, Route: IV, kg, Total Volume: 1,000, Start date: 07/01/12 6:00:00, Duration: 30 day, Stop date: 07/31/12 5:59:00 cefazolin + Sodium 1 gm, Route: IVPB No Longer [facility] Chloride 0.9% IV IVPB, ONCALL, Active 2012 [place] 100 mL Start date: 07/01/12 6:00:00, Duration: 1 doses or times, Stop date: 07/01/12 23:59:00 gabapentin 300 mg 300 mg, 1 cap, PO Active David Sugar oral capsule PO, TID, 90 2012 [place] cap, Substitution Allowed amLODipine 10 mg 10 mg, 1 tab, PO Active [place] oral tablet PO, Daily, tab, 2012 [place] Substitution Allowed, TAB Actos 30 mg oral 30 mg, 1 tab, PO Active [place] tablet PO, Daily, tab, 2012 [place] Substitution Allowed, TAB metoprolol 50 mg 50 mg, 1 tab, PO No Longer [place] oral tablet PO, Daily, 180 Active 2012 [place] tab, Substitution Allowed, TAB Detrol LA 4 mg 4 mg, 1 cap, PO Active [place] oral capsule, PO, Daily, cap, 2013 [place] extended release Substitution Allowed levothyroxine 75 75 microgram, 1 PO Active David Sugar mcg (0.075 mg) tab, PO, Daily, 2012 [place] oral tablet tab, Substitution Allowed, TAB hydrochlorothiazid 1 tab, PO, PO Active [place] e-losartan 25 Daily, 30 tab, 2012 [place] mg-100 mg oral Substitution tablet Allowed, Maintenance, TAB simvastatin 20 mg 20 mg, 1 tab, PO Active David Sugar oral tablet PO, Bedtime, 2012 [place] Substitution Allowed, TAB GABAPENTIN 300 MG per other M.D. Active [place] CAPS 2011 [facility] SIMVASTATIN 20 MG per other M.D. Active [place] TABS 2011 [facility] AMLODIPINE per other M.D. Active [place] BESYLATE 10 MG 2011 [facility] & TABS Joint METOPROLOL per other M.D. Active [place] TARTRATE 50 MG 2011 [facility] ACTOS 30 MG TABS per other M.D. Active [place] 2011 [facility] DETROL 2 MG TABS per other M.D. Active [place] 2011 [facility] LEVOTHYROXINE per other M.D. Active [place] SODIUM 75 MCG TABS 2011 [facility] HYZAAR 100-25 MG per other M.D. Active [place] TABS 2011 [facility] NASONEX 50 MCG/ACT per other M.D. Active [place] SUSP 2012 [facility] TYLENOL TABS OTC Active [place] 2012 [facility] ZANTAC CAPS OTC Active [place] 2012 [facility] GABAPENTIN 300 MG per other M.D. Active [place] CAPS 2011 [facility] SIMVASTATIN 20 MG per other M.D. Active [place] TABS 2011 [facility] AMLODIPINE per other M.D. Active [place] BESYLATE 10 MG 2011 [facility] & TABS Joint METOPROLOL per other M.D. Active [place] TARTRATE 50 MG 2011 Bone & TABS Joint ACTOS 30 MG TABS per other M.D. Active [place] 2011 [facility] DETROL 2 MG TABS per other M.D. Active [place] 2011 [facility] LEVOTHYROXINE per other M.D. Active [place] SODIUM 75 MCG TABS 2012 [facility] HYZAAR 100-25 MG per other M.D. Active [place] TABS 2012 [facility] NASONEX 50 MCG/ACT per other M.D. Active 07/11/ [place] SUSP 2012 [facility] TYLENOL TABS OTC Active [place] 2011 [facility] ZANTAC CAPS OTC Active [place] 2011 [facility] Allergies, Adverse Reactions, Alerts Substance Category Reaction Severity Reaction Status Date Comments Source type Reported CODEINE Drug CODEINE [place] allergy 2 [facility] codeine Assertion Itching Moderate Drug Active [facility] (finding) allergy Immunizations Immunization Date Given Site Status Last Comments Source Updated heptavalent 05/29/2013 completed [place] pneumococcal [facility] conjugate vaccine (7-valent) #1 heptavalent 05/29/2013 completed [place] pneumococcal [facility] conjugate vaccine (7-valent) #2 heptavalent 05/29/2013 completed [place] pneumococcal [facility] conjugate vaccine (7-valent) #4 heptavalent 12/12/2012 completed [place] pneumococcal [facility] conjugate vaccine (7-valent) #1 heptavalent 12/12/2012 completed [place] pneumococcal [facility] conjugate vaccine (7-valent) #2 heptavalent 12/12/2012 completed [place] pneumococcal [facility] conjugate vaccine (7-valent) #4 heptavalent 08/14/2012 completed [place] pneumococcal [facility] conjugate vaccine (7-valent) #1 heptavalent 08/14/2012 completed [place] pneumococcal [facility] conjugate vaccine (7-valent) #2 heptavalent 08/14/2012 completed [place] pneumococcal [facility] conjugate vaccine (7-valent) #4 heptavalent 07/15/2012 completed [place] pneumococcal [facility] conjugate vaccine (7-valent) #1 heptavalent 07/15/2012 completed [place] pneumococcal [facility] conjugate vaccine (7-valent) #2 heptavalent 07/15/2012 completed [place] pneumococcal [facility] conjugate vaccine (7-valent) #4 heptavalent 06/06/2012 completed [place] pneumococcal [facility] conjugate vaccine (7-valent) #1 heptavalent 06/06/2012 completed [place] pneumococcal [facility] conjugate vaccine (7-valent) #2 heptavalent 06/06/2012 completed [place] pneumococcal [facility] conjugate vaccine (7-valent) #4 heptavalent 12/19/2011 completed [place] pneumococcal [facility] conjugate vaccine (7-valent) #1 heptavalent 12/19/2011 completed [place] pneumococcal [facility] conjugate vaccine (7-valent) #2 heptavalent 12/19/2011 completed [place] pneumococcal [facility] conjugate vaccine (7-valent) #4 heptavalent 07/12/2011 completed [place] pneumococcal [facility] conjugate vaccine (7-valent) #1 heptavalent 07/12/2011 completed [place] pneumococcal [facility] conjugate vaccine (7-valent) #2 heptavalent 07/12/2011 completed [place] pneumococcal [facility] conjugate vaccine (7-valent) #4 Results Order Name Results Value Reference Date Interpretation Comments Source Range LABORATORY Blood 144 74 - 106 08/22 [facility] Glucose, Capillary LABORATORY Blood 144 74 - 106 08/22 [facility] Glucose, Capillary LABORATORY Blood 112 74 - 106 08/22 [facility] Glucose, Capillary LABORATORY Blood 112 74 - 106 08/22 [facility] Glucose, Capillary LABORATORY MCV 93.6 80.0 - 08/22 [facility] 98.0 LABORATORY Hematocrit 26.0 36.0 - 08/22 [facility] 48.0 LABORATORY White Blood 8.6 3.7 - 10.4 08/22 [facility] Count /2017 LABORATORY Red Blood 2.77 4.20 - 08/22 [facility] Cell Count 5.40 /2017 LABORATORY Hemoglobin 8.5 12.0 - 08/22 [facility] 16.0 LABORATORY MPV 7.3 7.4 - 10.4 08/22 LABORATORY MCH 30.6 27.0 - 08/22 [facility] 31.0 LABORATORY Platelet 241 133 - 450 08/22I LABORATORY MCHC 32.7 32.0 - 08/22 [facility] 36.0 LABORATORY RDW 14.4 11.5 - 08/22 [facility] 14.5 LABORATORY Glucose Lvl 100 70 - 99 08/22 Result Comment: Adult reference range values reflect the clinical guidelines
of the [place] [employer]. LABORATORY Chloride 105 95 - 109 08/22 [facility] Level /2018 LABORATORY Potassium 4.2 3.5 - 5.1 08/22 [facility] Level /2018 LABORATORY Sodium Level 139 135 - 145 08/22 [facility] LABORATORY Creatinine 1.06 0.50 - 08/22 [facility] 1.40 /2018 LABORATORY BUN 19 7 - 22 08/22I LABORATORY Calcium Level 8.2 8.5 - 10.5 08/22 LABORATORY eGFR 50 08/22 Result Comment: The eGFR is calculated using the CKD-EPI formula. In most young, healthy
i ndividuals the eGFR will be >90 mL/min/1.73m2 . The eGFR declines with age. An
eGFR of 60-89 may be normal in some populations, particularly the elderly, for
whom the CKD-EPI formula has not been extensively validated. Use of the eGFR is
not recommended in the following populations:< br/>Individua ls with unstable creatinine concentration s, including
patients and those with serious co-morbid conditions.<b r/>Patients with extremes in muscle mass or diet.
The data above are obtained from the National Kidney Disease Education Program
( NKDEP) which additionally recommends that when the eGFR is used in patients<br/& gt;with extremes of body mass index for purposes of drug dosing, the eGFR should
be multiplied by the estimated BMI. LABORATORY AGAP 10.2 10.0 - 08/22 [facility] 20.0 2018 LABORATORY Carbon 28 24 - 32 08/22 [facility] Dioxide Level 2018 LABORATORY Basophil # 0.0 0.0 - 0.2 08/22 [facility] LABORATORY Eosinophil # 0.3 0.0 - 4.0 08/22I /2017 LABORATORY Lymphocyte % 13.5 20.0 - 08/22 [facility] 40.0 /2018 LABORATORY Neutrophil % 78.9 45.0 - 08/22 [facility] 75.0 /2018 LABORATORY Monocyte % 7.0 2.0 - 12.0 08/22 LABORATORY Eosinophil % 0.0 0.0 - 0.5 08/22 LABORATORY Basophil % 0.3 0.0 - 1.0 08/22 LABORATORY Monocyte # 0.6 0.0 - 0.8 08/22 LABORATORY Neutrophil # 6.8 1.5 - 8.1 08/22 LABORATORY Lymphocyte # 1.2 1.0 - 5.5 08/22 LABORATORY Blood 151 74 - 106 08/22 [facility] Glucose, Capillary LABORATORY Blood 151 74 - 106 08/22 [facility] Glucose, Capillary LABORATORY INR 0.91 0.85 - 07/31 Result [facility] 1.17 Comment: RECOMMENDED RANGES FOR PROTIME INR:
2.0-3.0 for most medical and surgical thromboemboli c states.
2.5-3.5 for artificial heart valves and recurrent embolism.<br/ >INR SHOULD BE USED ONLY FOR PATIENTS ON STABLE ANTICOAGULANT THERAPY. LABORATORY PT 12.3 12.0 - 07/31 [facility] 14.7 LABORATORY Results Reported 07/31 [facility] (07/31/17 11:48 AM) LABORATORY PTT 31.8 22.9 - 07/31 Result [facility] 35.8 Comment: Heparin Therapeutic Range: 57 - 92 Seconds LABORATORY Results Reported 07/31 [facility] (07/31/17 11:48 AM) BEDSIDE Comment1 Notify 07/04 NA GLUCOSE RN/ /2012 Sugar TESTING [facility] BEDSIDE Gluc POC 195 70 - 99 07/04 HI <sup>1</sup>I GLUCOSE [facility] nterpretive Sugar TESTING Data: [facility] Upper Reportable Limit: 200 mg/dL. BEDSIDE Gluc POC 144 70 - 99 07/04 [place] <sup>2</sup>I GLUCOSE [facility] nterpretive Sugar TESTING Data: [facility] Upper Reportable Limit: 200 mg/dL. HEMATOLOGY MPV 7.9 7.4 - 10.4 07/04 Normal /2012 [place] HEMATOLOGY MCHC 33.9 32.0 - 07/04 Normal 36.0 [place] HEMATOLOGY Platelet 189 133 - 450 07/04 Normal [place] HEMATOLOGY RDW 13.4 11.5 - 03/07 Normal MH 14.5 /2012 [place] HEMATOLOGY Hct 24.4 36.0 - 03/07 LOW MH 48.0 /2012 [place] HEMATOLOGY Hgb 8.3 12.0 - 03/07 LOW MH 16.0 /2012 [place] HEMATOLOGY MCH 32.4 27.0 - 03/07 HI MH 31.0 /2012 [place] HEMATOLOGY MCV 95.4 81.0 - 03/07 Normal MH 99.0 /2012 [place] HEMATOLOGY WBC 7.2 3.7 - 10.4 03/ Normal MH /2012 [place] HEMATOLOGY RBC 2.55 4.20 - 03/07 LOW MH 5.40 /2012 [place] HEMATOLOGY Basophils # 0.0 0.0 - 0.2 03/07 Normal MH /2012 [place] HEMATOLOGY Monocytes # 0.6 0.0 - 0.8 03/07 Normal MH /2012 [place] HEMATOLOGY Eosinophils # 0.0 0.0 - 0.5 03/07 Normal /2012 [place] HEMATOLOGY Lymphocytes # 1.8 1.0 - 5.5 03/ Normal /2012 [place] HEMATOLOGY Segs-Bands # 4.8 1.5 - 8.1 03/ Normal /2012 [place] HEMATOLOGY Basophils 0.2 0.0 - 1.0 03/07 Normal /2012 [place] HEMATOLOGY Eosinophils 0.7 0.0 - 4.0 03/07 Normal /2012 [place] HEMATOLOGY Lymphocytes 24.7 20.0 - 03/07 Normal MH 40.0 /2012 [place] HEMATOLOGY Monocytes 8.6 2.0 - 12.0 03/ Normal /2012 [place] HEMATOLOGY Segs 65.8 45.0 - 03 Normal MH 75.0 /2012 [place] BEDSIDE Comment1 Notify 07/04 [facility] GLUCOSE [place]/ /2012 Sugar TESTING [facility] BEDSIDE Gluc POC 191 70 - 99 07/04 HI <sup>3</sup>I GLUCOSE [place] /2012 nterpretive Sugar TESTING Data: [facility] Upper Reportable Limit: 200 mg/dL. BEDSIDE Comment1 Notify 07/03 NA GLUCOSE SAIR[place]/ /2012 Sugar TESTING [facility] CHEMISTRY AGAP 13.7 10.0 - 03 Normal 20.0 /2012 [place] CHEMISTRY eGFR 56 07/03 NA <sup>4</sup>R /2012 esult Sugar Comment: The [facility] eGFR is calculated using the CKD-EPI formula. In most young, healthy individuals the eGFR will be >90 mL/min/1.73m2 . The eGFR declines with age. An eGFR of 60-89 may be normal in some populations, particularly the elderly, for whom the CKD-EPI formula has not been extensively validated. Use of the eGFR is not recommended in the following populations:& lt;br/>
I ndividuals with unstable creatinine concentration s, including patients and those with serious co-morbid conditions.<b r/>
Patie nts with extremes in muscle mass or diet.

The data above are obtained from the National Kidney Disease Education Program (NKDEP) which additionally recommends that when the eGFR is used in patients with extremes of body mass index for purposes of drug dosing, the eGFR should be multiplied by the estimated BMI. CHEMISTRY Glucose Lvl 117 70 - 99 03 [place] <sup>6</sup>I nterpretive Sugar Data: Adult [place] reference range values reflect the clinical guidelines
of the [place] [employer]. CHEMISTRY Calcium Lvl 8.7 8.5 - 10.5 07/03 Normal /2012 [place] CHEMISTRY Chloride Lvl 102 95 - 109 07/03 Normal [place] CHEMISTRY CO2 29 24 - 32 07/03 Normal /2012 [place] CHEMISTRY Potassium Lvl 3.7 3.5 - 5.1 07/03 Normal [place] CHEMISTRY BUN 11 7 - 22 07/03 Normal /2012 [place] CHEMISTRY Creatinine 1.0 0.5 - 1.4 07/03 Normal MH Lvl /2012 [place] CHEMISTRY Sodium Lvl 141 135 - 145 / Normal /2012 [place] HEMATOLOGY MCV 94.5 81.0 - 03/ Normal MH 99.0 /2012 [place] HEMATOLOGY Platelet 178 133 - 450 03/ Normal /2012 [place] HEMATOLOGY WBC 8.5 3.7 - 10.4 / Normal MH /2012 [place] HEMATOLOGY Hct 25.7 36.0 - 03/ LOW MH 48.0 /2012 [place] HEMATOLOGY MCHC 33.4 32.0 - 03/ Normal MH 36.0 /2012 [place] HEMATOLOGY RDW 13.1 11.5 - 03/ Normal MH 14.5 /2012 [place] HEMATOLOGY MCH 31.6 27.0 - 03/ HI MH 31.0 /2012 [place] HEMATOLOGY RBC 2.72 4.20 - 03 LOW MH 5.40 /2012 [place] HEMATOLOGY Hgb 8.6 12.0 - 03/ LOW MH 16.0 /2012 [place] HEMATOLOGY MPV 7.7 7.4 - 10.4 03/ Normal /2012 [place] HEMATOLOGY Lymphocytes 16.1 20.0 - 03 LOW MH 40.0 /2012 [place] HEMATOLOGY Segs 72.0 45.0 - 03/ Normal MH 75.0 /2012 [place] HEMATOLOGY Lymphocytes # 1.4 1.0 - 5.5 03/ Normal [place] HEMATOLOGY Basophils 0.3 0.0 - 1.0 03/ Normal [place] HEMATOLOGY Segs-Bands # 6.1 1.5 - 8.1 07/03 Normal [place] HEMATOLOGY Eosinophils 0.1 0.0 - 4.0 / Normal [place] HEMATOLOGY Monocytes 11.5 2.0 - 12.0 03/ Normal [place] HEMATOLOGY Eosinophils # 0.0 0.0 - 0.5 / Normal [place] HEMATOLOGY Basophils # 0.0 0.0 - 0.2 / Normal [place] HEMATOLOGY Monocytes # 1.0 0.0 - 0.8 03/ HI [place] CHEMISTRY Hgb A1C 5.9 07/02 NA <sup>8</sup>I nterpretive [place] Data: HbA1C% [place] eAG(mg/dL) Interpretatio n
6.0 126 Very good control
6.5 140 Very good control
7.0 154 Good Control
7.5 169 Good Control
8.0 183 Marginal Control, take action to lower
8.5 197 Marginal Control, take action to lower
9.0 212 Poor Control, take action to lower
9.5 226 Poor Control, take action to lower
10. 0 240 Poor Control, take action to lower CHEMISTRY TSH 0.055 0.360 - 03 LOW MH 3.740 /2012 [place] CHEMISTRY LDL 98 0 - 129 03/ Normal [place] CHEMISTRY HDL 38 >=35 03/ Normal [place] CHEMISTRY Chol 152 120 - 200 03/05 Normal MH /2013 [place] CHEMISTRY CHD Risk 4.00 3.90 - 03/05 Normal MH 5.80 /2012 [place] CHEMISTRY Trig 81 0 - 200 03/05 Normal MH /2012 [place] CHEMISTRY T4 Free 1.82 0.76 - 03/05 HI MH 1.46 /2012 [place] HEMATOLOGY MCH 31.6 27.0 - 03/05 HI MH 31.0 /2012 [place] HEMATOLOGY MCV 93.3 81.0 - 03/05 Normal MH 99.0 /2013 [place] HEMATOLOGY Hgb 9.6 12.0 - 03/05 LOW MH 16.0 /2012 [place] HEMATOLOGY MCHC 33.9 32.0 - 03/05 Normal MH 36.0 /2012 [place] HEMATOLOGY Hct 28.3 36.0 - 03/05 LOW MH 48.0 /2012 [place] HEMATOLOGY WBC 8.7 3.7 - 10.4 03/05 Normal /2012 [place] HEMATOLOGY RBC 3.03 4.20 - 03/05 LOW MH 5.40 /2012 [place] HEMATOLOGY MPV 8.1 7.4 - 10.4 03/05 Normal /2012 [place] HEMATOLOGY RDW 13.3 11.5 - 03/05 Normal MH 14.5 /2013 [place] HEMATOLOGY Platelet 201 133 - 450 03/05 Normal /2012 [place] HEMATOLOGY Basophils # 0.0 0.0 - 0.2 03/05 Normal /2012 [place] HEMATOLOGY Eosinophils # 0.1 0.0 - 0.5 03/05 Normal /2012 [place] HEMATOLOGY Monocytes 6.3 2.0 - 12.0 03/05 Normal /2012 [place] HEMATOLOGY Lymphocytes 12.7 20.0 - 03/05 LOW MH 40.0 /2012 [place] HEMATOLOGY Segs 80.2 45.0 - 03/05 HI MH 75.0 /2013 [place] HEMATOLOGY Monocytes # 0.5 0.0 - 0.8 03/05 Normal /2012 [place] HEMATOLOGY Eosinophils 0.6 0.0 - 4.0 03/05 Normal MH /2012 [place] HEMATOLOGY Basophils 0.2 0.0 - 1.0 03/05 Normal MH /2012 [place] HEMATOLOGY Lymphocytes # 1.1 1.0 - 5.5 03/05 Normal /2012 [place] HEMATOLOGY Segs-Bands # 7.0 1.5 - 8.1 03/05 Normal [place] CHEMISTRY eGFR 50 03/05 NA <sup>5</sup>R esult [place] Comment: The [place] eGFR is calculated using the CKD-EPI formula. In most young, healthy individuals the eGFR will be >90 mL/min/1.73m2 . The eGFR declines with age. An eGFR of 60-89 may be normal in some populations, particularly the elderly, for whom the CKD-EPI formula has not been extensively validated. Use of the eGFR is not recommended in the following populations:& lt;br/>
I ndividuals with unstable creatinine concentration s, including patients and those with serious co-morbid conditions.<b r/>
Patie nts with extremes in muscle mass or diet.

The data above are obtained from the National Kidney Disease Education Program (NKDEP) which additionally recommends that when the eGFR is used in patients with extremes of body mass index for purposes of drug dosing, the eGFR should be multiplied by the estimated BMI. CHEMISTRY ALT 16 0 - 65 / Normal [place] CHEMISTRY BUN 15 7 - 22 / Normal [place] CHEMISTRY Glucose Lvl 114 70 - 99 / HI <sup>7</sup>I nterpretive Sugar Data: Adult [place] reference range values reflect the clinical guidelines
of the [place] [employer]. CHEMISTRY Albumin Lvl 3.2 3.5 - 5.0 / LOW /2012 [place] CHEMISTRY Calcium Lvl 8.7 8.5 - 10.5 / Normal [place] CHEMISTRY Total Protein 7.4 6.4 - 8.4 / Normal /2012 [place] CHEMISTRY Bili Total 0.4 0.2 - 1.3 / Normal /2012 [place] CHEMISTRY Alk Phos 98 39 - 136 /05 Normal /2012 [place] CHEMISTRY Globulin 4.2 2.0 - 4.0 /05 HI /2012 [place] CHEMISTRY A/G Ratio 0.8 0.7 - 1.6 / Normal /2012 [place] CHEMISTRY B/C Ratio 14 6 - 25 03/05 Normal /2012 [place] CHEMISTRY AGAP 16.0 10.0 - 03/05 Normal MH 20.0 /2013 [place] CHEMISTRY AST 21 0 - 37 03/05 Normal [place] CHEMISTRY Sodium Lvl 137 135 - 145 07/02 Normal [place] CHEMISTRY Potassium Lvl 4.0 3.5 - 5.1 07/02 Normal [place] CHEMISTRY Creatinine 1.1 0.5 - 1.4 07/02 Normal Lvl /2012 [place] CHEMISTRY Chloride Lvl 101 95 - 109 07/02 Normal [place] CHEMISTRY CO2 24 24 - 32 07/02 Normal [place] URINALYSIS UA Sq Epi Rare /LPF Few 06/27 Normal (06/27/2012 08:30:00) [place] URINALYSIS UA Leuk Est Negative Negative 06/27 Normal (06/27/2012 08:30:00) [place] URINALYSIS UA WBC 0-2 /HPF None Seen 06/27 Normal (06/27/2012 08:30:00) [place] URINALYSIS UA pH 6.0 5.0 - 8.0 06/27 Normal [place] URINALYSIS UA Protein Trace Negative 06/27 ABN *ABN* [place] (06/27/2012 08:30:00) [place] URINALYSIS UA Glucose Negative Negative 06/27 Normal (06/27/2012 08:30:00) [place] URINALYSIS UA RBC 3-5 /HPF 0 - 2 06/27 ABN *ABN* [place] (06/27/2012 08:30:00) [place] URINALYSIS UA Bacteria Occasional /HPF None Seen 06/27 Normal (06/27/2012 08:30:00) [place] URINALYSIS UA Ketones Negative Negative 06/27 NA *NA* /2012 [place] (06/27/2012 08:30:00) [place] URINALYSIS UA Bili Negative Negative 06/27 NA *NA* [place] (06/27/2012 08:30:00) [place] URINALYSIS UA 0.2 0.1 - 1.0 06/27 Normal Urobilinogen [place] URINALYSIS UA Blood Small Negative 06/27 ABN *ABN* [place] (06/27/2012 08:30:00) [place] URINALYSIS UA Nitrite Negative Negative 06/27 Normal (06/27/2012 08:30:00) [place] URINALYSIS UA Spec Grav 1.010 <=1.030 06/27 Normal [place] URINALYSIS UA Color Yellow Yellow 06/27 NA MH *NA* [place] (06/27/2012 08:30:00) [place] URINALYSIS UA Turbidity Clear Clear 06/27 Normal MH (06/27/2012 08:30:00) [place] Microbiolog Culture: 06/27 MH y Urine [place] Pathology Reports No Data Provided for This Section Diagnostic Reports No Data Provided for This Section Consultation Notes No Data Provided for This Section Discharge Summaries No Data Provided for This Section History and Physicals No Data Provided for This Section Vital Signs Vital Sign Value Date Comments Source Heart Rate 63 08/22/2017 [facility] Temperature Oral (F) 36.5 Ami 08/22/2017 [facility] Systolic (mm Hg) 146 08/22/2017 [facility] Diastolic (mm Hg) 58 08/22/2017 [facility] Respitory Rate 18 08/22/2017 [facility] Systolic (mm Hg) 148 08/22/2017 [facility] Diastolic (mm Hg) 73 08/22/2017 [facility] Respitory Rate 18 08/22/2017 [facility] Heart Rate 67 08/22/2017 [facility] Temperature Oral (F) 36.6 Ami 08/22/2017 [facility] Respitory Rate 18 08/22/2017 [facility] Systolic (mm Hg) 115 08/22/2017 [facility] Diastolic (mm Hg) 57 08/22/2017 [facility] Heart Rate 69 08/22/2017 [facility] Temperature Oral (F) 36.5 Ami 08/22/2017 [facility] Temperature Oral (F) 36.7 Ami 08/21/2017 [facility] Peripheral Pulse Rate 82 08/21/2017 [facility] Height 150 cm 08/21/2017 [facility] Weight Measured 58.96 08/21/2017 [facility] Weight Measured 58.96 07/31/2017 [facility] Height 150 cm 07/31/2017 [facility] Peripheral Pulse Rate 88 07/31/2017 [facility] Systolic (mm Hg) 157 07/04/2012 [place] Diastolic (mm Hg) 70 07/04/2012 [place] Respitory Rate 18 07/04/2012 [place] Heart Rate 88 07/04/2012 [place] Temperature Oral (F) 98.5 F 07/04/2012 [place] Diastolic (mm Hg) 62 07/04/2012 [place] Systolic (mm Hg) 119 07/04/2012 [place] Respitory Rate 18 07/04/2012 [place] Heart Rate 64 07/04/2012 [place] Temperature Oral (F) 98.6 F 07/04/2012 [place] Diastolic (mm Hg) 50 07/04/2012 [place] Systolic (mm Hg) 112 07/04/2012 [place] Respitory Rate 18 07/04/2012 [place] Heart Rate 83 07/04/2012 [place] Temperature Oral (F) 98.5 F 07/04/2012 [place] Height 149.86 cm 07/01/2012 [place] Weight 63.182 07/01/2012 [place] Weight 63.636 06/24/2012 [place] Height 147.32 cm 06/24/2012 [place] Height 59 07/12/2011 [facility] Weight 140 07/12/2011 [facility] Systolic (mm Hg) 180 07/12/2011 [facility] Diastolic (mm Hg) 75 07/12/2011 [facility] Heart Rate 73 07/12/2011 [facility] Encounters Location Location Encounter Encounter Reason Attending ADM NM Status Source Details Type Number For Provider Date Date Visit [place] [facility] [id number] [place] 07/11 07/11 [place] [facility] [id number] Radha MCDANIEL [facility] [place] [facility] [id number] [facility] 12/18 12/18 [place] [facility] Visit [id number] Radha MCDANIEL [facility] [place] [id number] 715.96 - [place] 12/20 Active OPID 0 OSTEOART [place] HROS NO [facility] [place] [facility] Report [id number] [place] 02/07 02/07 [place] [facility] [address]77 Radha MCDANIEL /2011 [facility] [place] [facility] [id number] [place] 06/06 06/06 [place] [facility] [place] [id number] Radha MCDANIEL [facility] Inpatient [id number] [place] 07/01 07/04 Discharg [facility] [place] 0 [place] /2012 [facility] [place] [facility] [id number] [place] 07/15 07/15 [place] [facility] [place] [id number] Radha MCDANIEL [facility] [place] [facility] Report [id number] [place] 07/23 07/23 [place] [facility] [address]802 Radha MCDANIEL /2012 [facility] [place] [facility] [id number] [place] 08/14 08/14 [place] [facility] [place] [id number] Radha MCDANIEL /2012 [facility] [place] [facility] [id number] [place] 12/12 12/12 [place] [facility] [place] [id number] Radha MCDANIEL /2012 [facility] [place] [facility] [id number] [place] 05/29 05/29 [place] [facility] Visit [id number] Radha MCDANIEL /2013 [facility] Outpatient [id number] [place] 07/10 Active [facility] [facility] [id number] Wilner 07/10 07/11 [facility] Erick Pope /2017 [facility] Outpatient [id number] Anderson 08/15 08/15 Active Surgical Gagnon /2017 [facility] Outpatient [id number] Anderson 08/15 08/16 [facility] Erick Gagnon /2017 [facility] Inpatient [id number] Wilner 08/21 08/22 Active Surgical Pope /2017 [facility] Inpatient [id number] Wilner 08/21 08/22 [facility] Erick Pope /2017 [facility] Procedures Procedure Code Date Perfomer Comments Source ARTHROPLASTY KNEE auto-populated [facility] CONDYLE & PLATEAU 8 from documented MEDIAL AND LATERAL surgical case [id number] (Left)<sup>1</sup> Knee arthroplasty [id number] 1right [place] <sup>1</sup> 3 Arthroplasty [id number] [facility] 3 genitourinary review 573635.9 frequent [place] [facility], E&M 2 urination & Joint Cataract surgery [id number] [place] 7 Laminectomy with [id number] [place] excision of 7 herniated intervertebral disc, nucleus pulposus cervical 2/3 levels [facility] fusion<sup>2</sup> 7 surgery on ruptured [facility] ulcer 1 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
--- OUTSIDE RECORDS SUMMARY | 2019-01-18 12:13 | XMS REPORT | Continuity of Care Document ---
:1940 Author Organization [facility] Care Team Providers Name Role Phone Wilner Garcia MD Unavailable Unavailable Encounters Encounter Performer Location Date Office Visit Wilner Garcia MD [place] [facility] Dec 19, 2011 Allergies, Adverse Reactions, Alerts Type Substance Reaction Status Drug allergy CODEINE Active Problems Problem Effective Dates Problem Status HYPERTENSION Jul 12, 2011 Active HYPERCHOLESTEROLEMIA Jul 12, 2011 Active DIABETES, TYPE II Jul 12, 2011 Active ASTHMA Jul 12, 2011 Active KNEE PAIN, RIGHT Inactive OSTEOARTHRITIS, KNEE, RIGHT Inactive Procedures Date Description Comments Jul 12, 2011 genitourinary review of systems, E&M frequent urination Jul 12, 2011 genitourinary review of systems, E&M frequent urination Dec 19, 2011 genitourinary review of systems, E&M frequent urination Medications Medication Instructions Start Date Status GABAPENTIN 300 MG CAPS per other M.D. Jul 12, 2011 Active SIMVASTATIN 20 MG TABS per other M.D. Jul 12, 2011 Active AMLODIPINE BESYLATE 10 MG TABS per other M.D. Jul 12, 2011 Active METOPROLOL TARTRATE 50 MG TABS per other M.D. Jul 12, 2011 Active ACTOS 30 MG TABS per other M.D. Jul 12, 2011 Active DETROL 2 MG TABS per other M.D. Jul 12, 2011 Active LEVOTHYROXINE SODIUM 75 MCG TABS per other M.D. Jul 12, 2011 Active HYZAAR 100-25 MG TABS per other M.D. Jul 12, 2011 Active NASONEX 50 MCG/ACT SUSP per other M.D. Jul 12, 2011 Active TYLENOL TABS OTC Jul 12, 2011 Active ZANTAC CAPS OTC Jul 12, 2011 Active Vital Signs Date Description Test Result Jul 12, 2011 height E&M - 8302-2 HEIGHT 59 in Jul 12, 2011 weight E&M - 3141-9 WEIGHT 140 lb Jul 12, 2011 blood pressure, systolic - 8480-6 BP SYSTOLIC 180 mm Hg Jul 12, 2011 blood pressure, diastolic - 8462-4 BP DIASTOLIC 75 mm Hg Jul 12, 2011 pulse rate E&M - 8867-4 PULSE RATE 73 /min
--- OUTSIDE RECORDS SUMMARY | 2019-01-18 12:13 | XMS REPORT | Continuity of Care Document ---
:1940 Author Organization [facility] Care Team Providers Name Role Phone Wilner Garcia MD Unavailable Unavailable Insurance Providers Payer name Policy type / Coverage type Policy ID Covered alliance party ID Policy [place] Medicare Medicaid Encounters Encounter Performer Location Date Office Visit Wilner Garcia MD [place] [facility] Jul 15, 2012 Allergies, Adverse Reactions, Alerts Type Substance Reaction Status Drug allergy CODEINE Active Problems Problem Effective Dates Problem Status HYPERTENSION Jul 12, 2011 Active HYPERCHOLESTEROLEMIA Jul 12, 2011 Active DIABETES, TYPE II Jul 12, 2011 Active ASTHMA Jul 12, 2011 Active KNEE PAIN, RIGHT Active OSTEOARTHRITIS, KNEE, RIGHT Active RT TOTAL KNEE ARTHROPLASTY Jul 01, 2012 Active Medications Medication Instructions Start Date Status GABAPENTIN [...] ZANTAC CAPS OTC Jul 12, 2011 Active Immunizations Vaccine Date Status heptavalent pneumococcal conjugate vaccine (7-valent) #1 Jul 12, 2011 completed heptavalent pneumococcal conjugate vaccine (7-valent) #2 Jul 12, 2011 completed heptavalent pneumococcal conjugate vaccine (7-valent) #4 Jul 12, 2011 completed heptavalent pneumococcal conjugate vaccine (7-valent) #1 Dec 19, 2011 completed heptavalent pneumococcal conjugate vaccine (7-valent) #2 Dec 19, 2011 completed heptavalent pneumococcal conjugate vaccine (7-valent) #4 Dec 19, 2011 completed heptavalent pneumococcal conjugate vaccine (7-valent) #1 Jun 06, 2012 completed heptavalent pneumococcal conjugate vaccine (7-valent) #2 Jun 06, 2012 completed heptavalent pneumococcal conjugate vaccine (7-valent) #4 Jun 06, 2012 completed heptavalent pneumococcal conjugate vaccine (7-valent) #1 Jul 15, 2012 completed heptavalent pneumococcal conjugate vaccine (7-valent) #2 Jul 15, 2012 completed heptavalent pneumococcal conjugate vaccine (7-valent) #4 Jul 15, 2012 completed Vital Signs Date Description Test Result Jul [...]
--- OUTSIDE RECORDS SUMMARY | 2019-01-18 12:13 | XMS REPORT | Continuity of Care Document ---
:1939 Author Organization [facility] Care Team Providers Name Role Phone Wilner Garcia MD Unavailable Unavailable Insurance Providers Payer name Policy type / Coverage type Policy ID Covered green party ID Policy [place] Medicare Medicaid Encounters Encounter Performer Location Date Office Visit Wilner Garcia MD [place] [facility] Jun 06, 2012 Allergies, Adverse Reactions, Alerts Type Substance Reaction Status Drug allergy CODEINE Active Problems Problem Effective Dates Problem Status HYPERTENSION Jul 12, 2011 Active HYPERCHOLESTEROLEMIA Jul 12, 2011 Active DIABETES, TYPE II Jul 12, 2011 Active ASTHMA Jul 12, 2011 Active KNEE PAIN, RIGHT Active OSTEOARTHRITIS, KNEE, RIGHT Active Medications Medication Instructions Start Date Status [...] vaccine (7-valent) #4 Jun 06, 2012 completed Vital Signs Date Description Test [...]
--- OUTSIDE RECORDS SUMMARY | 2019-01-18 12:13 | XMS REPORT | Continuity of Care Document ---
:1939 Author Organization [facility] Care Team Providers Name Role Phone Wilner Garcia MD Unavailable Unavailable Insurance Providers Payer name Policy type / Coverage type Policy ID Covered democrat ID Policy [place] Medicare Medicaid Encounters Encounter Performer Location Date Lab Report Wilner Garcia MD [facility] Jul 23, 2012 Allergies, Adverse Reactions, Alerts Type Substance [...]
--- OUTSIDE RECORDS SUMMARY | 2019-01-18 12:13 | XMS REPORT | Summary of Care ---
:[address] [facility] Address [address] [place] [address] Encounter [facility] [id number] Date(s): 08/21/17 - 08/22/[address] [facility] [address] [place], [place] [phone] Discharge Diagnosis: Unilateral primary osteoarthritis, left knee Discharge Disposition: Discharged to Home or Self Care Attending Physician: Wilner Garcia MD Admitting Physician: Wilner Garcia MD Vital Signs Most recent to oldest 1 2 3 [Reference Range]: Temperature Oral [35.8-37.3 36.5 DegC 36.6 DegC 36.5 DegC DegC] (08/22/17 12:00 PM) (08/22/17 8:00 AM) (08/22/17 4:00 AM) Temperature Temporal Artery 36.7 DegC [36.3-37.8 DegC] (08/21/17 5:50 PM) Temperature Farenheit 97.7 DegF 97.88 DegF 97.7 DegF (08/22/17 12:00 PM) (08/22/17 8:00 AM) (08/22/17 4:00 AM) Temperature Temporal 98.06 Fahrenheit (08/21/17 5:50 PM) Peripheral Pulse Rate [55-105 82 bpm 88 bpm bpm] (08/21/17 1:21 PM) (07/31/17 10:56 AM) Heart Rate Monitored [60-100 63 bpm 67 bpm 69 bpm bpm] (08/22/17 12:00 PM) (08/22/17 8:00 AM) (08/22/17 4:00 AM) Respiratory Rate [12-20] 18 18 18 (08/22/17 12:00 PM) (08/22/17 8:00 AM) (08/22/17 4:00 AM) SpO2 [90-100 %] 100 % 100 % 99 % (08/22/17 12:00 PM) (08/22/17 8:00 AM) (08/22/17 7:45 AM) Blood Pressure [110-120/65-85 146/58 mmHg 148/73 mmHg 115/57 mmHg mmHg] *HI* *HI* (08/22/17 4:00 AM) (08/22/17 12:00 PM) (08/22/17 8:00 AM) Mean Arterial Pressure, Cuff 76.3 mmHg 79 mmHg 84.3 mmHg (08/22/17 4:00 AM) (08/22/17 12:00 AM) (08/21/17 8:15 PM) Height 150 cm 150 cm (08/21/17 1:21 PM) (07/31/17 10:56 AM) Height/Length Dosing 150 cm 150 cm (08/21/17 1:21 PM) (07/31/17 10:56 AM) Height Inches 59 in 59 in (08/21/17 1:21 PM) (07/31/17 10:56 AM) Weight 58.96 kg 58.96 kg (08/21/17 1:21 PM) (07/31/17 10:56 AM) Weight Dosing 58.96 kg 58.96 kg (08/21/17 1:21 PM) (07/31/17 10:56 AM) Weight Pounds 130 lb 130 lb (08/21/17 1:21 PM) (07/31/17 10:56 AM) Body Mass Index 26.2 kg/m2 26.2 kg/m2 (08/21/17 1:21 PM) (07/31/17 10:56 AM) Problem List Condition Effective Dates Status Health Status Informant Arthritis(Confirmed) Active Bladder(Confirmed) Active Cholesterol(Confirmed) Active Chronic kidney disease(Confirmed)1 Active Diabetes mellitus(Confirmed)2 04/30/03 Active Hand pain(Confirmed) Active Hypertension(Confirmed)3 1974 Active Hypothyroid(Confirmed) Active Knee pain(Confirmed)4 Active Stomach ulcer(Confirmed) 04/30/90 Resolved 1stage 3- reports no problems, states due to HTN. No [id number] range - 140' s3mon by pcp- denies any other cardiac [id number] Allergies, Adverse Reactions, Alerts Substance Reaction Severity Status codeine Itching Moderate Active Medications acetaminophen 1,000 mg, Soln-IV, IV Piggyback, Once, first dose 08/21/17 16:02:00 CDT, stop date 08/21/17 16:02:00CDT Start Date: 08/21/17 Stop Date: 08/21/17 Status: CompletedActos 30 mg=1 tabs, Tab, Oral, Daily, first dose 08/21/17 9:00:00 CDT, Patient's Own Meds Start Date: 08/21/17 Stop Date: 08/22/17 Status: DiscontinuedActos 30 mg oral tablet 30 mg=1 tabs, Oral, Daily, 0 Refill(s), DM Start Date: 07/31/17 Stop Date: 08/14/17 Status: Orderedalbuterol 2.5 mg/3 mL (0.083%) inhalation solution 2.5 mg=3 mL, Soln, NEB, Once PRN for wheezing, first dose 08/21/17 18:03:00 CDT Start Date: 08/21/17 Stop Date: 08/21/17 Status: DiscontinuedamLODIPine 10 mg=2 tabs, Tab, Oral, Once, first dose 08/21/17 21:00:00 CDT, stop date 08/21 21:00:00 CDT Start Date: 08/21/17 Stop Date: 08/21/17 Status: DiscontinuedamLODIPine 10 mg=2 tabs, Tab, Oral, Daily, first dose 08/21/17 9:00:00 CDT Start Date: 08/21/17 Stop Date: 08/22/17 Status: DiscontinuedamLODIPine 10 mg oral tablet 10 mg=1 tabs, Oral, Daily, take am of procedure, 0 Refill(s), HTN Start Date: 07/31/17 Stop Date: 08/14/17 Status: Orderedaspirin 325 mg=1 tabs, Tab, Oral, BID, first dose 08/22/17 9:00:00 CDT Start Date: 08/22/17 Stop Date: 08/22/17 Status: Discontinuedaspirin 81 mg oral tablet 81 mg=1 tabs, Oral, BID, take for 6 weeks Start Date: 08/21/17 Stop Date: 09/04/17 Status: Orderedbisacodyl 10 mg=2 tabs, Tab-DR, Oral, Daily PRN for constipation, first dose 08/21/17 18: 12:00 CDT Start Date: 08/21/17 Stop Date: 08/22/17 Status: Discontinuedbisacodyl 10 mg=1 supp, Supp, WI, Once PRN for constipation, first dose 08/21/17 18:12:00 CDT Start Date: 08/21/17 Stop Date: 08/22/17 Status: DiscontinuedBupivacaine 0.25% 300 mL pump 300 mL 300 mL, Nerve Block, 5 mL/hr, start date 08/21/17 18:03:00 CDT Start Date: 08/21/17 Stop Date: 08/21/17 Status: DiscontinuedBupivacaine 0.25% 300 mL pump 300 mL 300 mL, Nerve Block, 5 mL/hr, start date 08/21/17 18:29:00 CDT Start Date: 08/21/17 Stop Date: 08/22/17 Status: DiscontinuedceFAZolin 1 gm, Soln-IV, IV Piggyback, q8hr, infuse over 30 minutes, order duration: 3 doses, first dose 08/21/17 23:30:00 CDT, stop date 08/22/17 23:29:00 CDT, DC THIS ORDER IF DOCUMENTED ANCEF ALLERGY, Prophylaxis Start Date: 08/21/17 Stop Date: 08/22/17 Status: DiscontinuedceFAZolin 2 gm, Soln-IV, IV Piggyback, Once, first dose 08/21/17 15:55:00 CDT, stop date 08/21/17 15:55:00 CDT Start Date: 08/21/17 Stop Date: 08/21/17 Status: CompletedceFAZolin 2 gm, Soln-IV, IV Piggyback, Once, infuse over 30 minutes, first dose 08/21/17 14:00:00 CDT, stop date 08/21/17 14:00:00 CDT, patient weight 50-120 kg, Prophylaxis Start Date: 08/21/17 Stop Date: 08/21/17 Status: CompletedCeleBREX 200 mg=2 caps, Cap, Oral, BID, first dose 08/21/17 21:00:00 CDT Start Date: 08/21/17 Stop Date: 08/22/17 Status: DiscontinuedCeleBREX 400 mg=4 caps, Cap, Oral, Once, first dose 08/21/17 14:00:00 CDT, stop date 14:00:00 CDT Start Date: 08/21/17 Stop Date: 08/21/17 Status: CompletedCeleBREX 200 mg oral capsule 200 mg=1 caps, Oral, Daily, # 30 caps, 3 Refill(s) Start Date: 08/21/17 Stop Date: 09/04/17 Status: Orderedclindamycin 600 mg, Soln-IV, IV Piggyback, q8hr, infuse over 30 minutes, order duration: 3 doses, first dose 08/21/17 22:00:00 CDT, stop date 08/22/17 21:59:00 CDT, GIVE ONLY IF ANCEF ALLERGIC, Prophylaxis Start Date: 08/21/17 Stop Date: 08/21/17 Status: DiscontinuedcloNIDine 0.1 mg=1 tabs, Tab, Oral, q6hr PRN for hypertension, first dose 08/21/17 20:39: 00 CDT Start Date: 08/21/17 Stop Date: 08/22/17 Status: DiscontinuedColace 100 mg=1 caps, Cap, Oral, BID, first dose 08/21/17 21:00:00 CDT Start Date: 08/21/17 Stop Date: 08/22/17 Status: DiscontinuedColace 100 mg oral capsule 100 mg=1 caps, Oral, BID Start Date: 08/21/17 Stop Date: 09/04/17 Status: OrderedCozaar 100 mg=2 tabs, Tab, Oral, Daily, first dose 08/22/17 9:00:00 CDT Start Date: 08/22/17 Stop Date: 08/22/17 Status: DiscontinuedDemerol HCl 12.5 mg=0.5 mL, Injection, IV Push, Once PRN for shivers, first dose 08/21/17 18 :03:00 CDT Start Date: 08/21/17 Stop Date: 08/21/17 Status: DiscontinuedDetrol LA 4 mg oral capsule, extended release 4 mg=1 caps, Oral, Daily, 0 Refill(s), bladder Start Date: 07/31/17 Stop Date: 08/14/17 Status: OrderedDetrol LA 4 mg oral capsule, extended release 4 mg, Misc, Oral, Daily, first dose 08/21/17 9:00:00 CDT, Patient's Own Meds Start Date: 08/21/17 Stop Date: 08/22/17 Status: Discontinueddexamethasone 8 mg=2 mL, Injection, IV, Once, first dose 08/21/17 15:53:00 CDT, stop date 15:53:00 CDT Start Date: 08/21/17 Stop Date: 08/21/17 Status: CompletedDilaudid 0.2 mg=0.2 mL, Injection, IV Push, q10min PRN for pain severe (7-10), first dose 08/21/17 18:03:00 CDT Start Date: 08/21/17 Stop Date: 08/21/17 Status: DiscontinueddiphenhydrAMINE 25 mg=1 caps, Cap, Oral, q8hr PRN for itching, first dose 08/21/17 18:36:00 CDT Start Date: 08/21/17 Stop Date: 08/22/17 Status: DiscontinuedePHEDrine 5 mg=0.1 mL, Injection, IV, Once, first dose 08/21/17 15:58:00 CDT, stop date 15:58:00 CDT Start Date: 08/21/17 Stop Date: 08/21/17 Status: CompletedePHEDrine 10 mg=0.2 mL, Injection, IV, Once, first dose 08/21/17 16:04:00 CDT, stop date 08/21/17 16:04:00 CDT Start Date: 08/21/17 Stop Date: 08/21/17 Status: CompletedfentaNYL 50 mcg=1 mL, Injection, IV, Once, first dose 08/21/17 15:36:00 CDT, stop date 15:36:00 CDT Start Date: 08/21/17 Stop Date: 08/21/17 Status: CompletedfentaNYL 25 mcg=0.5 mL, Injection, IV, Once, first dose 08/21/17 16:34:00 CDT, stop date 08/21/17 16:34:00 CDT Start Date: 08/21/17 Stop Date: 08/21/17 Status: CompletedfentaNYL 50 mcg=1 mL, Injection, IV, Once, first dose 08/21/17 16:13:00 CDT, stop date 16:13:00 CDT Start Date: 08/21/17 Stop Date: 08/21/17 Status: CompletedfentaNYL 25 mcg=0.5 mL, Injection, IV, Once, first dose 08/21/17 17:46:00 CDT, stop date 08/21/17 17:46:00 CDT Start Date: 08/21/17 Stop Date: 08/21/17 Status: Completedferrous sulfate 325 mg=1 tabs, Tab, Oral, TIDWM, first dose 08/22/17 8:00:00 CDT Start Date: 08/22/17 Stop Date: 08/22/17 Status: DiscontinuedFlu Shot PF 0.5 mL, Injection, IM, Once PRN for other (see comment), first dose 08/21/17 18: 12:00 CDT Start Date: 08/21/17 Stop Date: 08/22/17 Status: Discontinuedgabapentin 300 mg=1 caps, Cap, Oral, TID, first dose 08/21/17 14:00:00 CDT Start Date: 08/21/17 Stop Date: 08/22/17 Status: Discontinuedgabapentin 300 mg oral capsule 300 mg=1 caps, Oral, TID, 0 Refill(s), hand nerve pain Start Date: 07/31/17 Stop Date: 08/14/17 Status: Orderedgabapentin 300 mg oral capsule 300 mg=1 caps, Oral, qHS, # 14 caps Start Date: 08/21/17 Stop Date: 09/04/17 Status: OrderedhydrALAZINE 5 mg=0.25 mL, Injection, IV Push, As Indicated PRN for hypertension, first dose 08/21/17 18:03:00 CDT Start Date: 08/21/17 Stop Date: 08/21/17 Status: DiscontinuedhydroCHLOROthiazide 25 mg=1 tabs, Tab, Oral, Daily, first dose 08/22/17 9:00:00 CDT Start Date: 08/22/17 Stop Date: 08/22/17 Status: Discontinuedhydrochlorothiazide-losartan 25 mg-100 mg oral tablet 1 tabs, Oral, Daily, do not take am of procedure, 0 Refill(s), HTN Start Date: 07/31/17 Stop Date: 08/14/17 Status: Orderedhydrochlorothiazide-losartan 25 mg-100 mg oral tablet 1 tabs, Misc, Oral, Daily, first dose 08/21/17 9:00:00 CDT, Patient's Own Meds Start Date: 08/21/17 Stop Date: 08/21/17 Status: Discontinuedinsulin regular sliding scale MEDIUM 3 - 15 units, Injection, Subcutaneous, QIDACHS, first dose 08/21/17 16:30:00 CDT Start Date: 08/21/17 Stop Date: 08/22/17 Status: Discontinuedlabetalol 5 mg=1 mL, Injection, IV Push, As Indicated PRN for hypertension, first dose 18:03:00 CDT Start Date: 08/21/17 Stop Date: 08/21/17 Status: DiscontinuedLactated Ringers Injection IV, start date 08/21/17 17:58:00 CDT, stop date 08/21/17 17:58:00 CDT Start Date: 08/21/17 Stop Date: 08/21/17 Status: Completedlevothyroxine 50 mcg=2 tabs, Tab, Oral, Every other day, first dose 08/23/17 6:30:00 CDT, Give M/W/F and alternateeveryother day with 75 mcg Start Date: 08/23/17 Stop Date: 08/21/17 Status: Discontinuedlevothyroxine 88 mcg=1 tabs, Tab, Oral, Daily, first dose 08/22/17 6:30:00 CDT, Patient's Own Meds Start Date: 08/22/17 Stop Date: 08/21/17 Status: Canceledlevothyroxine 88 mcg (0.088 mg) oral capsule 88 mcg=1 caps, Oral, Daily, 0 Refill(s), thyroid Start Date: 07/31/17 Stop Date: 08/14/17 Status: Orderedlidocaine 3 mL, Injection, IV, Once, first dose 08/21/17 15:45:00 CDT, stop date 08/21/17 15:45:00 CDT Start Date: 08/21/17 Stop Date: 08/21/17 Status: CompletedLidocaine 2% 0.2 mL IV Start [[place]] 0.2 mL, Injection, Subcutaneous, Once PRN for other (see comment), first dose 13:17:00 CDT Start Date: 08/21/17 Stop Date: 08/21/17 Status: DeletedLR 1,000 mL 1,000 mL, IV, 75 mL/hr, start date 08/21/17 18:12:00 CDT Start Date: 08/21/17 Stop Date: 08/21/17 Status: DiscontinuedLR 1,000 mL 1,000 mL, IV, 30 mL/hr, start date 08/21/17 13:17:00 CDT Start Date: 08/21/17 Stop Date: 08/21/17 Status: DiscontinuedLR 1,000 mL 1,000 mL, IV, 75 mL/hr, start date 08/21/17 18:03:00 CDT Start Date: 08/21/17 Stop Date: 08/21/17 Status: Discontinuedmetoprolol 100 mg=4 tabs, Tab-ER, Oral, Daily, first dose 08/21/17 9:00:00 CDT Start Date: 08/21/17 Stop Date: 08/22/17 Status: Discontinuedmetoprolol succinate 100 mg oral tablet, extended release 100 mg=1 tabs, Oral, Daily, take am of procedure, 0 Refill(s), HTN Start Date: 07/31/17 Stop Date: 08/14/17 Status: Orderedmidazolam 1 mg=1 mL, Injection, IV, Once, first dose 08/21/17 15:36:00 CDT, stop date 15:36:00 CDT Start Date: 08/21/17 Stop Date: 08/21/17 Status: Completedmidazolam 1 mg=1 mL, Injection, IV, Once, first dose 08/21/17 16:13:00 CDT, stop date 16:13:00 CDT Start Date: 08/21/17 Stop Date: 08/21/17 Status: CompletedMisc Medication 1,000 mL, Soln-IV, IV, Once, first dose 08/21/17 15:40:00 CDT, stop date 15:40:00 CDT Start Date: 08/21/17 Stop Date: 08/21/17 Status: Completedmorphine 2 mg=1 mL, Injection, IV Push, q3hr PRN for breakthrough pain, first dose 18:36:00 CDT Start Date: 08/21/17 Stop Date: 08/22/17 Status: Discontinuedmultivitamin with minerals 1 tabs, Tab, Oral, Daily, first dose 08/22/17 9:00:00 CDT Start Date: 08/22/17 Stop Date: 08/22/17 Status: DiscontinuedNeurontin 300 mg=1 caps, Cap, Oral, Once, first dose 08/21/17 14:00:00 CDT, stop date 14:00:00 CDT, Give 1 hour pre-operatively Start Date: 08/21/17 Stop Date: 08/21/17 Status: CanceledNorco 10 mg-325 mg oral tablet 1 tabs, Oral, q6hr, PRN as needed for pain, # 90 tabs, 0 Refill(s) Start Date: 08/21/17 Stop Date: 09/04/17 Status: OrderedNormal Saline 1,000 mL 1,000 mL, IV, 75 mL/hr, start date 08/21/17 18:53:00 CDT Start Date: 08/21/17 Stop Date: 08/22/17 Status: DiscontinuedNS bolus 250 mL 250 mL, IV, BOLUS, other (see comment), start date 08/22/17 18:36:00 CDT Start Date: 08/22/17 Stop Date: 08/22/17 Status: Canceledondansetron 4 mg=2 mL, Injection, IV Push, q15min PRN for nausea, order duration: 2 doses, first dose 08/21/17 18:03:00 CDT, stop date Limited # of times Start Date: 08/21/17 Stop Date: 08/21/17 Status: Discontinuedondansetron 4 mg=2 mL, Injection, IV Push, q8hr PRN for nausea/vomiting, first dose 18:36:00 CDT Start Date: 08/21/17 Stop Date: 08/22/17 Status: Discontinuedondansetron 4 mg=2 mL, Injection, IV, Once, first dose 08/21/17 17:10:00 CDT, stop date 17:10:00 CDT Start Date: 08/21/17 Stop Date: 08/21/17 Status: CompletedOxyCONTIN 10 mg=1 tabs, Tab-ER, Oral, Pre Op, first dose 08/21/17 13:17:00 CDT Start Date: 08/21/17 Stop Date: 08/21/17 Status: Completedphenylephrine 0.1 mg=0.01 mL, Injection, IV, Once, first dose 08/21/17 17:11:00 CDT, stop date 08/21/17 17:11:00 CDT Start Date: 08/21/17 Stop Date: 08/21/17 Status: Completedphenylephrine 0.1 mg=0.01 mL, Injection, IV, Once, first dose 08/21/17 17:21:00 CDT, stop date 08/21/17 17:21:00 CDT Start Date: 08/21/17 Stop Date: 08/21/17 Status: Completedphenylephrine 0.1 mg=0.01 mL, Injection, IV, Once, first dose 08/21/17 16:08:00 CDT, stop date 08/21/17 16:08:00 CDT Start Date: 08/21/17 Stop Date: 08/21/17 Status: Completedpromethazine 12.5 mg=0.5 mL, Injection, IM, Once PRN for vomiting, first dose 08/21/17 18:03: 00 CDT Start Date: 08/21/17 Stop Date: 08/21/17 Status: Discontinuedpromethazine 25 mg=1 mL, Injection, IM, q4hr PRN for severe nausea, first dose 08/21/17 18:36 :00 CDT Start Date: 08/21/17 Stop Date: 08/22/17 Status: Discontinuedpropofol 100 mg=10 mL, Emulsion, IV, Once, first dose 08/21/17 15:45:00 CDT, stop date 15:45:00 CDT Start Date: 08/21/17 Stop Date: 08/21/17 Status: CompletedRobinul 0.2 mg=1 mL, Injection, IV Push, Once PRN for bradycardia, first dose 08/21/17 18:03:00 CDT, Heart Rate < 40 Start Date: 08/21/17 Stop Date: 08/21/17 Status: DiscontinuedSaline Lock Flush 10 mL, Soln, IV Push, q8hr, first dose 08/21/17 19:00:00 CDT Start Date: 08/21/17 Stop Date: 08/22/17 Status: DiscontinuedSaline Lock Flush 10 mL, Soln, IV Push, As Indicated PRN for flush, first dose 08/21/17 18:12:00 CDT Start Date: 08/21/17 Stop Date: 08/22/17 Status: DiscontinuedSaline Lock Flush 10 mL, Soln, IV Push, As Indicated PRN for flush, first dose 08/21/17 18:03:00 CDT Start Date: 08/21/17 Stop Date: 08/21/17 Status: Discontinuedsimvastatin 20 mg=1 tabs, Tab, Oral, qHS, first dose 08/21/17 21:00:00 CDT Start Date: 08/21/17 Stop Date: 08/22/17 Status: Discontinuedsimvastatin 20 mg oral tablet 20 mg=1 tabs, Oral, qHS, 0 Refill(s), cholesterol Start Date: 07/31/17 Stop Date: 08/14/17 Status: OrderedSynthroid 50 mcg=2 tabs, Tab, Oral, Every other day, first dose 08/22/17 6:30:00 CDT, Give M/W/F and alternateeveryother day with 75 mcg Start Date: 08/22/17 Stop Date: 08/22/17 Status: DiscontinuedtraMADol 50 mg=1 tabs, Tab, Oral, q6hr PRN for pain mild-moderate (1-6), first dose 08/21 18:36:00 CDT Start Date: 08/21/17 Stop Date: 08/22/17 Status: DiscontinuedtraMADol 100 mg=2 tabs, Tab, Oral, q6hr PRN for pain severe (7-10), first dose 08/21/17 18:36:00 CDT Start Date: 08/21/17 Stop Date: 08/22/17 Status: Discontinuedtranexamic acid 600 mg=6 mL, Soln, IV, Once, first dose 08/21/17 16:06:00 CDT, stop date 16:06:00 CDT Start Date: 08/21/17 Stop Date: 08/21/17 Status: Completedtranexamic acid 1 gm, Soln, IV, As Indicated, first dose 08/21/17 13:17:00 CDT, 30 min prior to incision and at closure Start Date: 08/21/17 Stop Date: 08/21/17 Status: DiscontinuedXopenex 0.63 mg/3 mL inhalation solution 0.63 mg=3 mL, Soln, NEB, Once PRN for wheezing, first dose 08/21/17 18:03:00 CDT Start Date: 08/21/17 Stop Date: 08/21/17 Status: Discontinued Results LABORATORY Most recent to 1 2 3 4 5 6 oldest [Reference Range]: Results Reported Reported (07/31/17 11:48 AM) (07/31/17 11:48 AM) White Blood Count 8.6 K/CMM [3.7-10.4 K/CMM] *NA* (08/22/17 3:04 AM) Red Blood Cell 2.77 M/CMM Count [4.20-5.40 *LOW* M/CMM] (08/22/17 3:04 AM) Hemoglobin 8.5 gm/dL [12.0-16.0 gm/dL] *LOW* (08/22/17 3:04 AM) Hematocrit 26.0 % [36.0-48.0 %] *LOW* (08/22/17 3:04 AM) Platelet [133-450 241 K/CMM K/CMM] *NA* (08/22/17 3:04 AM) MCV [80.0-98.0 93.6 fL fL] *NA* (08/22/17 3:04 AM) MCH [27.0-31.0 30.6 pg pg] *NA* (08/22/17 3:04 AM) MCHC [32.0-36.0 32.7 gm/dL gm/dL] *NA* (08/22/17 3:04 AM) RDW [11.5-14.5 %] 14.4 % *NA* (08/22/17 3:04 AM) MPV [7.4-10.4 fL] 7.3 fL *LOW* (08/22/17 3:04 AM) Neutrophil % 78.9 % [45.0-75.0 %] *HI* (08/22/17 3:04 AM) Lymphocyte % 13.5 % [20.0-40.0 %] *LOW* (08/22/17 3:04 AM) Monocyte % 7.0 % [2.0-12.0 %] *NA* (08/22/17 3:04 AM) Eosinophil % 0.0 K/CMM [0.0-0.5 K/CMM] *NA* (08/22/17 3:04 AM) Basophil % 0.3 % [0.0-1.0 %] *NA* (08/22/17 3:04 AM) Neutrophil # 6.8 K/CMM [1.5-8.1 K/CMM] *NA* (08/22/17 3:04 AM) Lymphocyte # 1.2 K/CMM [1.0-5.5 K/CMM] *NA* (08/22/17 3:04 AM) Monocyte # 0.6 K/CMM [0.0-0.8 K/CMM] *NA* (08/22/17 3:04 AM) Eosinophil # 0.3 % [0.0-4.0 %] *NA* (08/22/17 3:04 AM) Basophil # 0.0 K/CMM [0.0-0.2 K/CMM] *NA* (08/22/17 3:04 AM) PT [12.0-14.7 12.3 seconds seconds] *NA* (07/31/17 11:48 AM) INR [0.85-1.17] 0.91 1 *NA* (07/31/17 11:48 AM) PTT [22.9-35.8 31.8 seconds 2 seconds] *NA* (07/31/17 11:48 AM) Sodium Level 139 mEq/L [135-145 mEq/L] *NA* (08/22/17 3:04 AM) Potassium Level 4.2 mEq/L [3.5-5.1 mEq/L] *NA* (08/22/17 3:04 AM) Chloride Level 105 mEq/L [95-109 mEq/L] *NA* (08/22/17 3:04 AM) Total Carbon 28 mEq/L Dioxide Level *NA* [24-32 mEq/L] (08/22/17 3:04 AM) AGAP [10.0-20.0 10.2 mEq/L mEq/L] *NA* (08/22/17 3:04 AM) BUN [7-22 mg/dL] 19 mg/dL *NA* (08/22/17 3:04 AM) Creatinine 1.06 mg/dL [0.50-1.40 mg/dL] *NA* (08/22/17 3:04 AM) Blood Glucose, 144 mg/dL 144 mg/dL 112 mg/dL 112 mg/dL 151 mg/dL 151 mg/ dL Capillary [74-106 *HI* *HI* *HI* *HI* *HI* *HI* mg/dL] (08/22/17 12:11 PM) (08/22/17 12:00 PM) (08/22/17 7:37 AM) (08/22/17 6: 18 AM) (08/21/17 9:35 PM) (08/21/17 8:58 PM) Glucose Lvl 100 mg/dL 3 [70-99 mg/dL] *HI* (08/22/17 3:04 AM) Calcium Level 8.2 mg/dL [8.5-10.5 mg/dL] *LOW* (08/22/17 3:04 AM) eGFR 50 mL/min/1.73m2 4 *NA* (08/22/17 3:04 AM) 1Result Comment: RECOMMENDED RANGES FOR PROTIME INR: 2.0-3.0 for most medical and surgical thromboembolic states. 2.5-3.5 for artificial heart valves and recurrent embolism. INR SHOULD BE USED ONLY FOR PATIENTS ON STABLE ANTICOAGULANT THERAPY.2Result Comment: Heparin Therapeutic Range: 57 - 92 [id number] Comment: Adult reference range values reflect the clinical guidelines of the [place] [employer].4Result Comment: The eGFR is calculated using the CKD-EPI formula. In most young, healthy individuals the eGFR will be >90 mL/min/1.73m2. The eGFR declines with age. An eGFR of 60-89 may be normal in some populations, particularly the elderly, for whom the CKD-EPI formula has not been extensively validated. Use of the eGFR is not recommended in the following populations: Individuals with unstable creatinine concentrations, including patients and those with serious co-morbid conditions. Patients with extremes in muscle mass or diet. The data above are obtained from the National Kidney Disease Education Program (NKDEP) which additionally recommends that when the eGFR is used in patients with extremes of body mass index for purposes of drug dosing, the eGFR should be multiplied by the estimated BMI.Radiology Reports Exam Date Time Procedure Performing Provider Status 08/22/17 9:16 AM XR Knee 1 or 2 Views Left [id number] Jhonatan Ann; Roderick (Verified) Notes:(XR Knee 1 or 2 Views Left [id number]) Reason For Exam: Total Knee Replacement; Other (please specify)FINAL REPORT EXAM DESCRIPTION: Portable Left knee, 2 views, 08/22/2017 at 0908 hours CLINICAL HISTORY: 77 years Female Status post knee arthroplasty COMPARISON: None. FINDINGS: Portable AP and lateral projections of the Left knee show a total arthroplasty. Both the femoral and tibial components appear well seated. Gas in the adjacent soft tissues is thought to be related to the recent surgery. IMPRESSION: Post surgical changes are described. Electronically signed by: Erasmo Santos MD 08/22/2017 9:57 AM CDT Final Dictated by: Erasmo Santos MD Dictated DT/TM: 08/22/2017 9:57 am Signed by: Erasmo Santos MD Signed (Electronic Signature): 08/22/2017 9:57 am Transcribed by: Exam Date Time Procedure Performing Provider Status 07/31/17 11:45 AM XR Chest 2 Views Shell Carty; Roderick (Verified) Notes:(XR Chest 2 Views) Reason For Exam: Pre-Operative surgery;Other (please specify)FINAL REPORT EXAM DESCRIPTION: Chest x-ray two views: CLINICAL HISTORY: Pre-Operative surgery; total knee replacement arthroplasty. COMPARISON: None TECHNIQUE: PA and lateral views of the chest were obtained. FINDINGS: The heart is normal in size . The hilar and mediastinal structures are within normal limits. The pulmonary vascularity is normal . The lung haynes are free of any active pulmonary parenchymal or pleural disease. Mild peribronchial thickening and hyperinflation is noted. The bony structures are unremarkable. IMPRESSION: No active disease. Electronically signed by: Xiomara Palmer MD 07/31/2017 4:48 PM CDT Final Dictated by: Xiomara Palmer MD Dictated DT/TM: 07/31/2017 4:48 pm Signed by: Xiomara Palmer MD Signed (Electronic Signature): 07/31/2017 4:48 pm Transcribed by: SDM Immunizations No data available for this section Procedures Procedure Date Related Diagnosis Body Site ARTHROPLASTY KNEE CONDYLE & PLATEAU MEDIAL AND 08/21/17 LATERAL 41137 (Left)1 Arthroplasty 2012 cervical fusion2 2006 surgery on ruptured ulcer 1990 Carpal tunnel release3 1auto-populated from documented surgical case22/3 [id number] hand Social History Social History Type Response Smoking Status Never smoker Assessment and Plan No data available for this section
--- OUTSIDE RECORDS SUMMARY | 2019-01-18 12:13 | XMS REPORT | Continuity of Care Document ---
:1940 Author Organization [facility] Care Team Providers Name Role Phone Wilner Garcia MD Unavailable Unavailable Encounters Encounter Performer Location Date Lab Report Wilner Garcia MD [facility] Feb 08, 2012 Allergies, Adverse Reactions, Alerts Type Substance [...]
--- OUTSIDE RECORDS SUMMARY | 2019-01-18 12:13 | XMS REPORT | Continuity of Care Document ---
:1940 Author Organization [facility] Care Team Providers Name Role Phone Wilner Garcia MD Unavailable Unavailable Encounters Encounter Performer Location Date Office Visit Wilner Garcia MD [place] [facility] Jul 12, 2011 Allergies, Adverse Reactions, Alerts Type Substance [...]
--- OUTSIDE RECORDS SUMMARY | 2019-01-18 12:13 | XMS REPORT | Continuity of Care Document ---
:1939 Author Organization [facility] Care Team Providers Name Role Phone Wilner Garcia MD Unavailable Unavailable Insurance Providers Payer name Policy type / Coverage type Policy ID Covered democrat ID Policy [place] Medicare Medicaid Encounters Encounter Performer Location Date Office Visit Wilner Garcia MD [place] [facility] Aug 14, 2012 Allergies, Adverse Reactions, Alerts Type Substance [...] vaccine (7-valent) #4 Jul 15, 2012 completed heptavalent pneumococcal conjugate vaccine (7-valent) #1 Aug 14, 2012 completed heptavalent pneumococcal conjugate vaccine (7-valent) #2 Aug 14, 2012 completed heptavalent pneumococcal conjugate vaccine (7-valent) #4 Aug 14, 2012 completed Vital Signs Date Description Test [...]
--- OUTSIDE RECORDS SUMMARY | 2019-01-18 12:13 | XMS REPORT | Continuity of Care Document ---
:1939 Author Organization [facility] Care Team Providers Name Role Phone Wilner Garcia MD Unavailable Unavailable Insurance Providers Payer name Policy type / Coverage type Policy ID Covered democrat ID Policy [place] Medicare Medicaid Encounters Encounter Performer Location Date Office Visit Wilner Garcia MD [place] [facility] Dec 12, 2012 Allergies, Adverse Reactions, Alerts Type Substance [...] vaccine (7-valent) #4 Aug 14, 2012 completed heptavalent pneumococcal conjugate vaccine (7-valent) #1 Dec 12, 2012 completed heptavalent pneumococcal conjugate vaccine (7-valent) #2 Dec 12, 2012 completed heptavalent pneumococcal conjugate vaccine (7-valent) #4 Dec 12, 2012 completed Vital Signs Date Description Test [...]
--- OUTSIDE RECORDS SUMMARY | 2019-01-18 12:13 | XMS REPORT | Summary of Care ---
:1940 Author Organization [facility] Address [address] [place] [address] Encounter [facility] [address] Date(s): 08/15/17 - 08/15/17 [facility] [address] [place] [address]- Discharge Disposition: Discharged to Home or Self Care Attending Physician: Anderson Gagnon MD Admitting Physician: Anderson Gagnon MD Vital Signs No data available for this section Problem List Condition Effective Dates Status Health Status Informant Arthritis(Confirmed) Active Bladder(Confirmed) Active Cholesterol(Confirmed) Active Diabetes mellitus(Confirmed)1 04/30/03 Active Hand pain(Confirmed) Active Hypertension(Confirmed)2 1973 Active Hypothyroid(Confirmed) Active Knee pain(Confirmed)3 Active Stomach ulcer(Confirmed) 04/30/90 Resolved 1bs range - 140's2mon by pcp- denies any other cardiac [id number] Allergies, Adverse Reactions, Alerts Substance Reaction Severity Status codeine Itching Moderate Active Medications Actos 30 mg oral tablet 30 mg=1 tabs, Oral, Daily, 0 Refill(s), DM Start Date: 07/31/17 Stop Date: 08/14/17 Status: OrderedamLODIPine 10 mg oral tablet 10 mg=1 tabs, [...] Start Date: 07/31/17 Stop Date: 08/14/17 Status: Orderedlevothyroxine 88 mcg (0.088 mg) oral capsule 88 mcg=1 caps, Oral, Daily, 0 Refill(s), thyroid Start Date: 07/31/17 Stop Date: 08/14/17 Status: Orderedmetoprolol succinate 100 mg oral tablet, extended release 100 mg=1 tabs, Oral, Daily, take am of procedure, 0 Refill(s), HTN Start Date: 07/31/17 Stop Date: 08/14/17 Status: Orderedsimvastatin 20 mg oral tablet 20 mg=1 tabs, Oral, qHS, 0 Refill(s), cholesterol Start Date: 07/31/17 Stop Date: 08/14/17 Status: Ordered Results No data available for this section Immunizations No data available for this section Procedures No data available for this section Social History Social History Type Response Smoking Status Never smoker Assessment and Plan No data available for this section
--- OUTSIDE RECORDS SUMMARY | 2019-01-18 12:14 | XMS REPORT | Continuity of Care Document ---
:1939 Author Organization [facility] Care Team Providers Name Role Phone Wilner Garcia MD Unavailable Unavailable Insurance Providers Payer name Policy type / Coverage type Policy ID Covered green party ID Policy Rosario Medicare Encounters Encounter Performer Location Date Office Visit Wilner Garcia MD [place] [facility] May 29, 2013 Allergies, Adverse Reactions, Alerts Type Substance Reaction Status Drug allergy CODEINE Active Problems Problem Effective Dates Problem Status HYPERTENSION Jul 12, 2011 Active HYPERCHOLESTEROLEMIA Jul 12, 2011 Active DIABETES, TYPE II Jul 12, 2011 Active ASTHMA Jul 12, 2011 Active KNEE PAIN, RIGHT Active OSTEOARTHRITIS, KNEE, RIGHT Active RT TOTAL KNEE ARTHROPLASTY Jul 01, 2012 Active CONTUSION, RIGHT KNEE Active Medications Medication Instructions Start Date Status [...] vaccine (7-valent) #4 Dec 12, 2012 completed heptavalent pneumococcal conjugate vaccine (7-valent) #1 May 29, 2013 completed heptavalent pneumococcal conjugate vaccine (7-valent) #2 May 29, 2013 completed heptavalent pneumococcal conjugate vaccine (7-valent) #4 May 29, 2013 completed Vital Signs Date Description Test Result [...]
--- OUTSIDE RECORDS SUMMARY | 2019-01-18 12:14 | XMS REPORT | CCD ---
:1939 Author Organization [facility] Team Providers Name Role Phone Wilner Garcia Referring Provider Allergies, Adverse Reactions, Alerts Substance Reaction Status codeine Itching Active Problem List Condition Effective Dates Status Acute peptic ulcer Resolved Carpal tunnel < 06/24/2012 Inactive Cataract Resolved Diabetes mellitus Active Disc Active Hyperlipidemia Active Hypertension Active Hyperthyroidism Resolved Incontinence1 Active 1takes medication Medications Medication Instructions Start Date End Date Status Levothroid 75 microgram, 1.5 tab, 07/02/2012 07/02/2012 Discontinued Route: PO, Drug form: TAB, Q630AM, Start date: 07/02/12 6:43:00, Duration: 30 day, Stop date: 08/01/12 6:30:00 metoprolol 50 mg, 1 tab, Route: PO, 07/02/2012 07/04/2012 Discontinued Drug form: ERTAB, Daily, Start date: 07/02/12 9:09:00, Duration: 30 day, Stop date: 08/01/12 9:00:00 ferrous sulfate 324 mg 324 mg, 1 tab, PO, 07/04/2012 Ordered oral tablet [id number], 90 tab, Substitution Allowed, TAB acetaminophen 10 mg/mL 1,000 mg, 100 mL, Route: 07/01/2012 07/01/2012 Completed intravenous solution IV, Drug form: INJ, ONCE, Dosing Weight 63.636, kg, PRN Pain, For > or=50 kg, Start date: 07/01/12 12:34:00 metoprolol 50 mg oral 50 mg, 1 tab, PO, Daily, 07/01/2012 Ordered tablet, extended release Substitution Allowed ropivacaine 0.1% in NS - Dosing: Per Nerve Block 07/01/2012 07/01/2012 Discontinued site 2 250 mL Dosing Order, Route: NERVE BLOCK, Start date: 07/01/12 11:42:00 250 mL, Dosing Weight 63.636, kg, Duration: 30 day, Stop date: 07/31/12 12:41:00 naloxone 0.04 mg, 0.1 mL, Route: 07/01/2012 07/01/2012 Discontinued IVP, Drug form: INJ, Q2MIN, Dosing Weight 63.636, kg, PRN Narcotic Reversal, Start date: 07/01/12 11:42:00, Duration: 30 day, Stop date: 07/31/12 12:41:00 acetaminophen-oxycodone 1 tab, Route: PO, Drug 07/01/2012 07/01/2012 Discontinued 325 mg-5 mg oral tablet Form: TAB, Dosing Weight 63.636, kg, Q4H, PRN Pain Score 4-6, Start date: 07/01/12 11:42:00, Duration: 30 day, Stop date: 07/31/12 11:41:00 ondansetron 4 mg, 2 mL, Route: IVP, 07/01/2012 07/01/2012 Discontinued Drug form: INJ, ONCE, Dosing Weight 63.636, kg, PRN Nausea & Vomiting, Start date: 07/01/12 11:42:00, Duration: 1 doses or times, Stop date: Limited # of times acetaminophen-oxycodone 2 tab, Route: PO, Drug 07/01/2012 07/01/2012 Discontinued 325 mg-5 mg oral tablet Form: TAB, Dosing Weight 63.636, kg, Q4H, PRN Pain Score 7-10, Start date: 07/01/12 11:42:00, Duration: 30 day, Stop date: 07/31/12 11:41:00 Ultram 50 mg oral tablet 50 mg, 1 tab, PO, Q4H, 07/04/2012 Ordered PRN, 60 tab, Pain Score 1-3, Substitution Allowed, TAB Maalox Advanced Regular 30 mL, Route: PO, Drug 07/01/2012 07/04/2012 Discontinued Strength SUSP Form: SUSP, Dosing Weight 63.182, kg, QID, PRN Indigestion, Start date: 07/01/12 20:59:00, Duration: 30 day, Stop date: 07/31/12 20:58:00 gabapentin 300 mg oral 300 mg, 1 cap, PO, TID, 06/24/2012 Ordered capsule 90 cap, Substitution Allowed meperidine 12.5 mg, 0.5 mL, Route: 07/01/2012 07/01/2012 Discontinued IVP, Drug form: INJ, Q30Min, Dosing Weight 63.636, kg, PRN Other -See Comment, For shivering, Start date: 07/01/12 11:42:00, Duration: 2 doses or times, Stop date: Limited # of times morphine Sulfate 2 mg, 1 mL, Route: IVP, 07/01/2012 07/01/2012 Discontinued Drug form: INJ, Q5Min, Dosing Weight 63.636, kg, PRN Pain Score 4-6, Start date: 07/01/12 11:42:00, Duration: 8 doses or times, Stop date: Limited # of times flumazenil 0.2 mg, 2 mL, Route: 07/01/2012 07/01/2012 Discontinued IVP, Drug form: INJ, PRN, Dosing Weight 63.636, kg, PRN Benzodiazepine Reversal, Initial dose, Start date: 07/01/12 11:42:00, Duration: 30 day, Stop date: 07/31/12 12:41:00 naloxone 0.04 mg, 0.1 mL, Route: 07/01/2012 07/01/2012 Discontinued IVP, Drug form: INJ, Q2MIN, Dosing Weight 63.636, kg, PRN Narcotic Reversal, Start date: 07/01/12 11:42:00, Duration: 8 doses or times, Stop date: Limited # of times ondansetron 4 mg, 2 mL, Route: IVP, 07/01/2012 07/01/2012 Discontinued Drug form: INJ, ONCE, Dosing Weight 63.636, kg, PRN Nausea & Vomiting, Start date: 07/01/12 11:42:00 acetaminophen-hydrocodone 1 tab, Route: PO, Drug 07/01/2012 07/01/2012 Discontinued 325 mg-5 mg oral tablet Form: TAB, Dosing Weight 63.636, kg, Q4H, PRN Pain Score 1-3, Start date: 07/01/12 11:42:00, Duration: 30 day, Stop date: 07/31/12 11:41:00 acetaminophen-oxycodone 2 tab, Route: PO, Drug 07/01/2012 07/01/2012 Discontinued 325 mg-5 mg oral tablet Form: TAB, Dosing Weight 63.636, kg, Q4H, PRN Pain Score 4-6, Start date: 07/01/12 11:42:00, Duration: 30 day, Stop date: 07/31/12 11:41:00 acetaminophen-hydrocodone 2 tab, Route: PO, Drug 07/01/2012 07/01/2012 Discontinued 325 mg-5 mg oral tablet Form: TAB, Dosing Weight 63.636, kg, Q4H, PRN Pain Score 4-6, Start date: 07/01/12 11:42:00, Duration: 30 day, Stop date: 07/31/12 11:41:00 acetaminophen-oxycodone 1 tab, Route: PO, Drug 07/01/2012 07/01/2012 Discontinued 325 mg-5 mg oral tablet Form: TAB, Dosing Weight 63.636, kg, Q4H, PRN Pain Score 1-3, Start date: 07/01/12 11:42:00, Duration: 30 day, Stop date: 07/31/12 11:41:00 Lactated Ringers Injection 1,000 mL, Rate: 50 07/01/2012 07/01/2012 Discontinued IV 1,000 mL ml/hr, Infuse over: 20 hr, Route: IV, kg, Total Volume: 1,000, Start date: 07/01/12 11:42:00, Duration: 30 day, Stop date: 07/31/12 11:41:00 Lactated Ringers Injection 1,000 mL, Rate: 25 07/01/2012 07/01/2012 Discontinued IV 1000 mL ml/hr, Infuse over: 40 hr, Route: IV, Dosing Weight 63.636 kg, Total Volume: 1,000, Start date: 07/01/12 7:33:00, Duration: 30 day, Stop date: 07/31/12 7:32:00 Dextrose 50% Syringe 12.5 gm, 25 mL, Route: 07/01/2012 07/04/2012 Discontinued IVP, Drug Form: INJ, Dosing Weight 63.182, kg, PRN, PRN Blood Glucose Results, Start date: 07/01/12 17:11:00, Duration: 30 day, Stop date: 07/31/12 18:10:00 Dextrose 50% Syringe 25 gm, 50 mL, Route: 07/01/2012 07/04/2012 Discontinued IVP, Drug Form: INJ, Dosing Weight 63.182, kg, PRN, PRN Blood Glucose Results, Start date: 07/01/12 17:11:00, Duration: 30 day, Stop date: 07/31/12 18:10:00 glucagon 1 mg, Route: IM, Drug 07/01/2012 07/04/2012 Discontinued form: PDR/INJ, PRN, Dosing Weight 63.182, kg, PRN Blood Glucose Results, Start date: 07/01/12 17:11:00, Duration: 30 day, Stop date: 07/31/12 18:10:00 insulin aspart 2 unit, 0.02 mL, Route: 07/01/2012 07/04/2012 Discontinued SUB-Q, Drug form: SOLN, TID-Before Meals, Dosing Weight 63.182, kg, PRN Blood Glucose Results, Start date: 07/01/12 17:11:00, Duration: 30 day, Stop date: 07/31/12 17:10:00 insulin aspart 3 unit, 0.03 mL, Route: 07/01/2012 07/04/2012 Discontinued SUB-Q, Drug form: SOLN, TID-Before Meals, Dosing Weight 63.182, kg, PRN Blood Glucose Results, Start date: 07/01/12 17:11:00, Duration: 30 day, Stop date: 07/31/12 17:10:00 insulin aspart 4 unit, 0.04 mL, Route: 07/01/2012 07/04/2012 Discontinued SUB-Q, Drug form: SOLN, TID-Before Meals, Dosing Weight 63.182, kg, PRN Blood Glucose Results, Start date: 07/01/12 17:11:00, Duration: 30 day, Stop date: 07/31/12 17:10:00 insulin aspart 5 unit, 0.05 mL, Route: 07/01/2012 07/04/2012 Discontinued SUB-Q, Drug form: SOLN, TID-Before Meals, Dosing Weight 63.182, kg, PRN Blood Glucose Results, Start date: 07/01/12 17:11:00, Duration: 30 day, Stop date: 07/31/12 17:10:00 insulin aspart 1 unit, 0.01 mL, Route: 07/01/2012 07/04/2012 Discontinued SUB-Q, Drug form: SOLN, TID-Before Meals, Dosing Weight 63.182, kg, PRN Blood Glucose Results, Start date: 07/01/12 17:11:00, Duration: 30 day, Stop date: 07/31/12 17:10:00 amLODipine 10 mg oral 10 mg, 1 tab, PO, Daily, 06/24/2012 Ordered tablet tab, Substitution Allowed, TAB Actos 30 mg oral tablet 30 mg, 1 tab, PO, Daily, 06/24/2012 Ordered tab, Substitution Allowed, TAB Ambien 5 mg, 1 tab, Route: PO, 07/01/2012 07/04/2012 Discontinued Drug form: TAB, Bedtime, Dosing Weight 63.636, kg, PRN Insomnia, may repeat X1 in one hour if ineffective, Start date: 07/01/12 9:45:00, Duration: 30 day, Stop date: 07/31/12 9:44:00 Senokot S oral tablet 1 tab, Route: PO, Drug 07/01/2012 07/04/2012 Discontinued Form: TAB, Dosing Weight 63.636, kg, Bedtime, if no bowel movement in the last 24 hours, Start date: 07/01/12 21:00:00, Duration: 30 day, Stop date: 07/30/12 21:00:00 Fleet Enema 133 ml, Route: DC, Drug 07/01/2012 07/01/2012 Completed Form: CHRISTIAN, Dosing Weight 63.636, kg, ONCE, if no bowel movement and patient symptomatic, Start date: 07/01/12 9:45:00, Stop date: 07/01/12 9:45:00 diphenhydrAMINE 25 mg, 1 tab, Route: PO, 07/01/2012 07/04/2012 Discontinued Drug form: TAB, Q6H, Dosing Weight 63.636, kg, PRN as needed for itching, or rash, Start date: 07/01/12 9:45:00, Duration: 30 day, Stop date: 07/31/12 9:44:00 Celebrex 400 mg, 4 cap, Route: 07/02/2012 07/04/2012 Discontinued PO, Drug form: CAP, Daily, Dosing Weight 63.636, kg, Start date: 07/02/12 9:00:00, Duration: 30 day, Stop date: 07/31/12 9:00:00 morphine Sulfate 2 mg, 1 mL, Route: IVP, 07/01/2012 07/04/2012 Discontinued Drug form: INJ, Q3H, Dosing Weight 63.636, kg, PRN Pain Score 7-10, may repeat dosage X1 before next scheduled dose hours if pain unrelieved, Start date: 07/01/12 9:45:00, Duration: 30 day, Stop date: 07/31/12 9:44:00 ondansetron 4 mg, 2 mL, Route: IVP, 07/01/2012 07/04/2012 Discontinued Drug form: INJ, Q4H, Dosing Weight 63.636, kg, PRN Nausea & Vomiting, Start date: 07/01/12 9:45:00, Duration: 30 day, Stop date: 07/31/12 9:44:00 docusate 100 mg, 10 mL, Route: 07/01/2012 07/04/2012 Discontinued DC, Drug form: LIQ, Q6H, Dosing Weight 63.636, kg, PRN Constipation, Start date: 07/01/12 9:45:00, Duration: 30 day, Stop date: 07/31/12 9:44:00 diphenhydrAMINE 25 mg, 1 tab, Route: PO, 07/01/2012 07/04/2012 Discontinued Drug form: TAB, Bedtime, Dosing Weight 63.636, kg, PRN as needed for itching, or rash, Start date: 07/01/12 9:45:00, Duration: 30 day, Stop date: 07/31/12 9:44:00 enoxaparin 40 mg, 0.4 mL, Route: 07/02/2012 07/04/2012 Discontinued SUB-Q, Drug form: INJ, Daily, Dosing Weight 63.636, kg, Start date: 07/02/12 8:00:00, Duration: 30 day, Stop date: 07/31/12 8:00:00 Ultram 50 mg oral tablet 50 mg, 1 tab, Route: PO, 07/01/2012 07/04/2012 Discontinued Drug form: TAB, Q4H, Dosing Weight 63.636, kg, PRN Pain Score 1-3, Start date: 07/01/12 9:45:00, Duration: 30 day, Stop date: 07/31/12 9:44:00 LR IV 1,000 mL 1,000 mL, Rate: 70 07/01/2012 07/04/2012 Discontinued ml/hr, Infuse over: 14.3 hr, Route: IV, kg, Total Volume: 1,000, Start date: 07/01/12 9:45:00, Duration: 30 day, Stop date: 07/31/12 9:44:00 [place] 10/325 oral tablet 2 tab, Route: PO, Drug 07/01/2012 07/04/2012 Discontinued Form: TAB, Dosing Weight 63.636, kg, Q4H, PRN Pain, Start date: 07/01/12 9:45:00, Duration: 30 day, Stop date: 07/31/12 9:44:00 [place] 10/325 oral tablet 1 tab, Route: PO, Drug 07/01/2012 07/04/2012 Discontinued Form: TAB, Dosing Weight 63.636, kg, Q4H, PRN Pain, Start date: 07/01/12 9:45:00, Duration: 30 day, Stop date: 07/31/12 9:44:00 Robaxin 1,500 mg, 2 tab, Route: 07/01/2012 07/01/2012 Discontinued PO, Drug form: TAB, BID, Dosing Weight 63.636, kg, PRN Spasm, Start date: 07/01/12 9:45:00, Duration: 30 day, Stop date: 07/31/12 9:44:00 acetaminophen 975 mg, 3 tab, Route: 07/01/2012 07/04/2012 Discontinued PO, Drug form: TAB, Q6H, Dosing Weight 63.636, kg, PRN Pain/Fever, temp >101.5F, Start date: 07/01/12 9:45:00, Duration: 30 day, Stop date: 07/31/12 9:44:00 cefazolin (SCIP) + Sodium 1 gm, Route: IVPB, Q8H, 07/01/2012 07/02/2012 Completed Chloride 0.9% IV 100 mL Dosing Weight 63.636, kg, Start date: 07/01/12 18:00:00, Duration: 3 doses or times, Stop date: 07/02/12 10:00:00 simvastatin 20 mg, 1 tab, Route: PO, 07/01/2012 07/04/2012 Discontinued Drug form: TAB, Bedtime, Dosing Weight 63.182, kg, Start date: 07/01/12 21:00:00, Duration: 30 day, Stop date: 07/30/12 21:00:00 gabapentin 300 mg oral 300 mg, 1 cap, Route: 07/01/2012 07/04/2012 Discontinued capsule PO, Drug form: CAP, TID, Dosing Weight 63.182, kg, Start date: 07/01/12 17:00:00, Duration: 30 day, Stop date: 07/31/12 13:00:00 levothyroxine 75 microgram, Route: PO, 07/02/2012 07/01/2012 Deleted Drug form: TAB, Daily, Dosing Weight 63.182, kg, Start date: 07/02/12 9:00:00, Duration: 30 day, Stop date: 07/31/12 9:00:00 Blink Tears eye drops Blink Tears eye drops, 07/01/2012 Ordered 1-2 drop, BOTH EYES, Daily, PRN, as needed for dry eyes, Substitution Allowed Protonix 40 mg, Route: PO, Daily, 07/02/2012 07/01/2012 Canceled Dosing Weight 63.182, kg, Start date: 07/02/12 20:58:00, Duration: 30 day, Stop date: 08/01/12 9:00:00 metoprolol 50 mg oral 50 mg, 1 tab, PO, Daily, 06/24/2012 07/01/2012 Discontinued tablet 180 tab, Substitution Allowed, TAB Detrol LA 4 mg oral 4 mg, 1 cap, PO, Daily, 06/24/2012 Ordered capsule, extended release cap, Substitution Allowed levothyroxine 75 mcg 75 microgram, 1 tab, PO, 06/24/2012 Ordered (0.075 mg) oral tablet Daily, tab, Substitution Allowed, TAB hydrochlorothiazide-losart 1 tab, PO, Daily, 30 06/24/2012 Ordered an 25 mg-100 mg oral tab, Substitution tablet Allowed, Maintenance, TAB simvastatin 20 mg oral 20 mg, 1 tab, PO, 06/24/2012 Ordered tablet Bedtime, Substitution Allowed, TAB ranitidine 150 mg oral 150 mg, 1 tab, PO, BID, 07/01/2012 Ordered tablet PRN, as needed for heart burn, Substitution Allowed acetaminophen 500 mg, PO, Q6H, PRN, as 07/01/2012 Ordered needed for pain, Substitution Allowed, CAP BD Posiflush SF 15 mL, Route: IVP, Drug 07/03/2012 07/04/2012 Discontinued Form: INJ, PRN, PRN Line Flush, Start date: 07/03/12 6:30:00, Duration: 30 day, Stop date: 08/02/12 7:29:00 Lactated Ringers Injection 1,000 mL, Rate: 100 07/01/2012 07/03/2012 Discontinued IV 1,000 mL ml/hr, Infuse over: 10 hr, Route: IV, kg, Total Volume: 1,000, Start date: 07/01/12 6:00:00, Duration: 30 day, Stop date: 07/31/12 5:59:00 Levothroid 50 microgram, 1 tab, 07/03/2012 07/04/2012 Discontinued Route: PO, Drug form: TAB, Q630AM, Start date: 07/03/12 6:30:00, Duration: 30 day, Stop date: 08/01/12 6:30:00 amLODipine 10 mg, 2 tab, Route: PO, 07/04/2012 07/04/2012 Discontinued Drug form: TAB, Daily, Dosing Weight 63.182, kg, Start date: 07/04/12 9:00:00, Duration: 30 day, Stop date: 08/02/12 9:00:00 acetaminophen-oxycodone 1 tab, Route: PO, Drug 07/01/2012 07/03/2012 Discontinued 325 mg-5 mg oral tablet Form: TAB, Dosing Weight 63.636, kg, Q4H, PRN Pain Score 4-6, Start date: 07/01/12 12:25:00, Duration: 30 day, Stop date: 07/31/12 12:24:00 naloxone 0.04 mg, 0.1 mL, Route: 07/01/2012 07/03/2012 Discontinued IVP, Drug form: INJ, Q2MIN, Dosing Weight 63.636, kg, PRN Narcotic Reversal, Start date: 07/01/12 12:25:00, Duration: 30 day, Stop date: 07/31/12 13:24:00 ropivacaine 0.2% in NS 200 Dosing: Per Nerve Block 07/01/2012 07/03/2012 Discontinued mL - site 1 200 mL Dosing Order, Route: NERVE BLOCK, Start date: 07/01/12 12:25:00 200 mL, Drug Form: SOLN, Dosing Weight 63.636, kg, Duration: 30 day, Stop date: 07/31/12 12:24:00 acetaminophen-oxycodone 2 tab, Route: PO, Drug 07/01/2012 07/03/2012 Discontinued 325 mg-5 mg oral tablet Form: TAB, Dosing Weight 63.636, kg, Q4H, PRN Pain Score 7-10, Start date: 07/01/12 12:25:00, Duration: 30 day, Stop date: 07/31/12 12:24:00 ondansetron 4 mg, 2 mL, Route: IVP, 07/01/2012 07/03/2012 Discontinued Drug form: INJ, ONCE, Dosing Weight 63.636, kg, PRN Nausea & Vomiting, Start date: 07/01/12 12:25:00, Duration: 1 doses or times, Stop date: Limited # of times Nasonex 50 mcg/inh nasal 2 spray, NASAL, BID, PRN 07/01/2012 Ordered spray as needed for allergy symptoms, Substitute Allowed Protonix 40 mg, 1 tab, Route: PO, 07/01/2012 07/04/2012 Discontinued Drug form: ECTAB, Daily, Dosing Weight 63.182, kg, Start date: 07/01/12 21:01:00, Duration: 30 day, Stop date: 07/31/12 9:00:00 cefazolin + Sodium 1 gm, Route: IVPB, 07/01/2012 07/01/2012 Discontinued Chloride 0.9% IV 100 mL ONCALL, Start date: 07/01/12 6:00:00, Duration: 1 doses or times, Stop date: 07/01/12 23:59:00 Levothroid Route: PO, Drug form: 07/01/2012 07/02/2012 Deleted TAB, Q630AM, Priority: NOW, Start date: 07/01/12 16:25:00, Stop date: 07/31/12 6:30:00 Vital Signs Most recent to oldest 1 2 3 [Reference Range]: Height 149.86 cm 147.32 cm (07/01/2012 14:51:00) (06/24/2012 17:20:00) Temperature Oral 98.5 DegF 98.6 DegF 98.5 DegF [96.4-99.1 DegF] (07/04/2012 07:54:00) (07/04/2012 03:39:00) (07/03/2012 23: 35:00) Systolic Blood Pressure 157 mmHg 119 mmHg 112 mmHg [90-140 mmHg] *HI* (07/04/2012 03:39:00) (07/03/2012 23:35:00) (07/04/2012 07:54:00) Diastolic Blood Pressure 70 mmHg 62 mmHg 50 mmHg [60-90 mmHg] (07/04/2012 07:54:00) (07/04/2012 03:39:00) *LOW* (07/03/2012 23:35:00) Respiratory Rate [14-20 18 BRMIN 18 BRMIN 18 BRMIN BRMIN] (07/04/2012 07:54:00) (07/04/2012 03:39:00) (07/03/2012 23:35:00) Peripheral Pulse Rate 88 bpm 64 bpm 83 bpm [60-100 bpm] (07/04/2012 07:54:00) (07/04/2012 03:39:00) (07/03/2012 23:35: 00) Weight 63.182 kg 63.636 kg (07/01/2012 14:51:00) (06/24/2012 17:20:00) Results BEDSIDE GLUCOSE TESTING Most recent to oldest 1 2 3 [Reference Range]: Gluc POC Lifscn [70-99 195 mg/dL 1 144 mg/dL 2 191 mg/dL 3 mg/dL] *HI* *HI* *HI* (07/04/2012 12:03:00) (07/04/2012 08:00:00) (07/03/2012 21:41:00) Comment1 Notify RN/MD Notify RN/MD Notify RN/MD *NA* *NA* *NA* (07/04/2012 12:03:00) (07/03/2012 21:41:00) (07/03/2012 17:16:00) 1Interpretive Data: Upper Reportable Limit: 200 mg/dL.2Interpretive Data: Upper Reportable Limit: 200 mg/dL.3Interpretive Data: Upper Reportable Limit: 200 mg/dL.URINALYSIS Most recent to oldest [Reference Range]: 1 2 3 UA Turbidity [Clear] Clear (06/27/2012 08:30:00) UA Color [Yellow] Yellow *NA* (06/27/2012 08:30:00) UA pH [5.0-8.0] 6.0 (06/27/2012 08:30:00) UA Spec Grav [<=1.030] 1.010 (06/27/2012 08:30:00) UA Glucose [Negative] Negative (06/27/2012 08:30:00) UA Blood [Negative] Small *ABN* (06/27/2012 08:30:00) UA Ketones [Negative] Negative *NA* (06/27/2012 08:30:00) UA Protein [Negative] Trace *ABN* (06/27/2012 08:30:00) UA Urobilinogen [0.1-1.0 EU/dL] 0.2 EU/dL (06/27/2012 08:30:00) UA Bili [Negative] Negative *NA* (06/27/2012 08:30:00) UA Leuk Est [Negative] Negative (06/27/2012 08:30:00) UA Nitrite [Negative] Negative (06/27/2012 08:30:00) UA WBC [None Seen /HPF] 0-2 /HPF (06/27/2012 08:30:00) UA RBC [0-2 /HPF] 3-5 /HPF *ABN* (06/27/2012 08:30:00) UA Bacteria [None Seen /HPF] Occasional /HPF (06/27/2012 08:30:00) UA Sq Epi [Few /LPF] Rare /LPF (06/27/2012 08:30:00) CHEMISTRY Most recent to oldest [Reference 1 2 3 Range]: Sodium Lvl [135-145 mEq/L] 141 mEq/L 137 mEq/L (07/03/2012 04:30:00) (07/02/2012 03:50:36) Potassium Lvl [3.5-5.1 mEq/L] 3.7 mEq/L 4.0 mEq/L (07/03/2012 04:30:00) (07/02/2012 03:50:36) Chloride Lvl [95-109 mEq/L] 102 mEq/L 101 mEq/L (07/03/2012 04:30:00) (07/02/2012 03:50:36) CO2 [24-32 mEq/L] 29 mEq/L 24 mEq/L (07/03/2012 04:30:00) (07/02/2012 03:50:36) AGAP [10.0-20.0 mEq/L] 13.7 mEq/L 16.0 mEq/L (07/03/2012 04:30:00) (07/02/2012 03:50:36) Creatinine Lvl [0.5-1.4 mg/dL] 1.0 mg/dL 1.1 mg/dL (07/03/2012 04:30:00) (07/02/2012 03:50:36) eGFR 56 mL/min/1.73m2 4 50 mL/min/1.73m2 5 *NA* *NA* (07/03/2012 04:30:00) (07/02/2012 03:50:36) BUN [7-22 mg/dL] 11 mg/dL 15 mg/dL (07/03/2012 04:30:00) (07/02/2012 03:50:36) B/C Ratio [6-25] 14 (07/02/2012 03:50:36) Glucose Lvl [70-99 mg/dL] 117 mg/dL 6 114 mg/dL 7 *HI* *HI* (07/03/2012 04:30:00) (07/02/2012 03:50:36) Total Protein [6.4-8.4 g/dL] 7.4 g/dL (07/02/2012 03:50:36) Albumin Lvl [3.5-5.0 g/dL] 3.2 g/dL *LOW* (07/02/2012 03:50:36) Globulin [2.0-4.0 g/dL] 4.2 g/dL *HI* (07/02/2012 03:50:36) A/G Ratio [0.7-1.6] 0.8 (07/02/2012 03:50:36) Calcium Lvl [8.5-10.5 mg/dL] 8.7 mg/dL 8.7 mg/dL (07/03/2012 04:30:00) (07/02/2012 03:50:36) ALT [0-65 unit/L] 16 unit/L (07/02/2012 03:50:36) AST [0-37 unit/L] 21 unit/L (07/02/2012 03:50:36) Alk Phos [39-136 unit/L] 98 unit/L (07/02/2012 03:50:36) Bili Total [0.2-1.3 mg/dL] 0.4 mg/dL (07/02/2012 03:50:36) CHD Risk [3.90-5.80] 4.00 (07/02/2012 03:55:00) Chol [120-200 mg/dL] 152 mg/dL (07/02/2012 03:55:00) Trig [0-200 mg/dL] 81 mg/dL (07/02/2012 03:55:00) HDL [>=35 mg/dL] 38 mg/dL (07/02/2012 03:55:00) LDL [0-129 mg/dL] 98 mg/dL (07/02/2012 03:55:00) Hgb A1C 5.9 % 8 *NA* (07/02/2012 03:55:00) T4 Free [0.76-1.46 ng/dL] 1.82 ng/dL *HI* (07/02/2012 03:55:00) TSH [0.360-3.740 uIU/mL] 0.055 uIU/mL *LOW* (07/02/2012 03:55:00) 4Result Comment: The eGFR is calculated using the CKD-EPI formula. In most young , healthy individualsthe eGFR will be >90 mL/min/1.73m2. The eGFR [...] with extremes of body mass index for purposesof drug dosing, the eGFR should be multiplied by the estimated BMI.5Result Comment: The eGFR is calculated using the CKD-EPI formula. In most young, healthy individualsthe eGFR will be >90 mL/ min/1.73m2. The eGFR declines with age. An eGFR [...] with extremes of body mass index for purposesof drug dosing, the eGFR should be multiplied by the estimated BMI.6Interpretive Data: Adult reference range values reflect the clinical guidelines of the [place] [employer].7Interpretive Data: Adult reference range values reflect the clinical guidelines of the [place] [employer].8Interpretive Data: HbA1C% eAG(mg/dL ) Interpretation 6.0 126 Very good control 6.5 140 Very good control 7.0 154 Good Control 7.5 169 Good Control 8.0 183 Marginal Control, take action to lower 8.5 197 Marginal Control, take action to lower 9.0 212 Poor Control, take action to lower 9.5 226 Poor Control, take action to lower 10.0 240 Poor Control, take action to lowerHEMATOLOGY Most recent to oldest 1 2 3 [Reference Range]: WBC [3.7-10.4 K/CMM] 7.2 K/CMM 8.5 K/CMM 8.7 K/CMM (07/04/2012 04:42:53) (07/03/2012 04:30:00) (07/02/2012 03:55:00) RBC [4.20-5.40 M/CMM] 2.55 M/CMM 2.72 M/CMM 3.03 M/CMM *LOW* *LOW* *LOW* (07/04/2012 04:42:53) (07/03/2012 04:30:00) (07/02/2012 03:55:00) Hgb [12.0-16.0 g/dL] 8.3 g/dL 8.6 g/dL 9.6 g/dL *LOW* *LOW* *LOW* (07/04/2012 04:42:53) (07/03/2012 04:30:00) (07/02/2012 03:55:00) Hct [36.0-48.0 %] 24.4 % 25.7 % 28.3 % *LOW* *LOW* *LOW* (07/04/2012 04:42:53) (07/03/2012 04:30:00) (07/02/2012 03:55:00) MCV [81.0-99.0 fL] 95.4 fL 94.5 fL 93.3 fL (07/04/2012 04:42:53) (07/03/2012 04:30:00) (07/02/2012 03:55:00) MCH [27.0-31.0 pg] 32.4 pg 31.6 pg 31.6 pg *HI* *HI* *HI* (07/04/2012 04:42:53) (07/03/2012 04:30:00) (07/02/2012 03:55:00) MCHC [32.0-36.0 g/dL] 33.9 g/dL 33.4 g/dL 33.9 g/dL (07/04/2012 04:42:53) (07/03/2012 04:30:00) (07/02/2012 03:55:00) RDW [11.5-14.5 %] 13.4 % 13.1 % 13.3 % (07/04/2012 04:42:53) (07/03/2012 04:30:00) (07/02/2012 03:55:00) Platelet [133-450 K/CMM] 189 K/CMM 178 K/CMM 201 K/CMM (07/04/2012 04:42:53) (07/03/2012 04:30:00) (07/02/2012 03:55:00) MPV [7.4-10.4 fL] 7.9 fL 7.7 fL 8.1 fL (07/04/2012 04:42:53) (07/03/2012 04:30:00) (07/02/2012 03:55:00) Segs [45.0-75.0 %] 65.8 % 72.0 % 80.2 % (07/04/2012 04:42:53) (07/03/2012 04:30:00) *HI* (07/02/2012 03:55:00) Lymphocytes [20.0-40.0 %] 24.7 % 16.1 % 12.7 % (07/04/2012 04:42:53) *LOW* *LOW* (07/03/2012 04:30:00) (07/02/2012 03:55:00) Monocytes [2.0-12.0 %] 8.6 % 11.5 % 6.3 % (07/04/2012 04:42:53) (07/03/2012 04:30:00) (07/02/2012 03:55:00) Eosinophils [0.0-4.0 %] 0.7 % 0.1 % 0.6 % (07/04/2012 04:42:53) (07/03/2012 04:30:00) (07/02/2012 03:55:00) Basophils [0.0-1.0 %] 0.2 % 0.3 % 0.2 % (07/04/2012 04:42:53) (07/03/2012 04:30:00) (07/02/2012 03:55:00) Segs-Bands # [1.5-8.1 K/CMM] 4.8 K/CMM 6.1 K/CMM 7.0 K/CMM (07/04/2012 04:42:53) (07/03/2012 04:30:00) (07/02/2012 03:55:00) Lymphocytes # [1.0-5.5 1.8 K/CMM 1.4 K/CMM 1.1 K/CMM K/CMM] (07/04/2012 04:42:53) (07/03/2012 04:30:00) (07/02/2012 03:55:00) Monocytes # [0.0-0.8 K/CMM] 0.6 K/CMM 1.0 K/CMM 0.5 K/CMM (07/04/2012 04:42:53) *HI* (07/02/2012 03:55:00) (07/03/2012 04:30:00) Eosinophils # [0.0-0.5 0.0 K/CMM 0.0 K/CMM 0.1 K/CMM K/CMM] (07/04/2012 04:42:53) (07/03/2012 04:30:00) (07/02/2012 03:55:00) Basophils # [0.0-0.2 K/CMM] 0.0 K/CMM 0.0 K/CMM 0.0 K/CMM (07/04/2012 04:42:53) (07/03/2012 04:30:00) (07/02/2012 03:55:00) Microbiology Reports PROCEDURE:Culture: Urine STATUS: Auth (Verified) BODY SITE: COLLECTED DATE/TIME: 06/27/2012 08:30:00 SOURCE: Urine, Clean Catch FREE TEXT SOURCE: FINAL REPORTS Final Report<10,000 CFU/mL Skin Marilyn PRELIMINARY REPORTS Preliminary ReportNo Growth; Holding Procedures Procedures Date Related Diagnosis Carpal tunnel release Cataract surgery 04/30/2006 00:00:00 Excision of benign tumor of breast 1956 Knee arthroplasty 1 07/01/2012 00:00:00 Laminectomy with excision of herniated 04/30/2006 00:00:00 intervertebral disc, nucleus pulposus Perforated peptic ulcer closure 1right
--- OUTSIDE RECORDS SUMMARY | 2019-01-18 12:14 | XMS REPORT | CCD ---
:1940 Author Organization [facility] Outpatient [facility] Team Providers Name Role Phone Wilner Garcia Consulting Provider Allergies, Adverse Reactions, Alerts Substance Reaction Status NKDA Active
--- OUTSIDE RECORDS SUMMARY | 2019-01-18 12:14 | XMS REPORT ---
:1940 Author Organization [facility] Address [address] [place] [address] Care Team Providers Name Role Phone Unavailable Unavailable Unavailable Problems This patient has no known problems. Allergies, Adverse Reactions, Alerts This patient has no known allergies or adverse reactions. Medications This patient has no known medications.
[2019-01-18 13:24] LABS: Absolute Lymphocytes (CBC) 1.2 K/uL (0.7-4.9); Basophils % 0.4 % (0-1.3); Hematocrit 33.4 % (36.0-45.0); Lymphocytes % 15.6 % (15.3-44.8); MPV 7.2 fL (7.6-11.3); RBC Red Blood Cell Count 3.67 M/uL (3.86-4.86)
[2019-01-18 13:26] LABS: Protime INR 0.91
[2019-01-18 13:43] LABS: ALT/SGPT 22 U/L (12-78); AST/SGOT 23 U/L (15-37); Albumin 3.7 g/dL (3.4-5.0); Alkaline Phosphatase 173 U/L (45-117); BUN Blood Urea Nitrogen 22 mg/dL (7-18); Bicarbonate 27 mmol/L (21-32); Bilirubin Direct 0.2 mg/dL (0-0.2); Bilirubin Total 0.5 mg/dL (0.2-1.0); Glucose Level 126 mg/dL (74-106); NT PRO-BNP 873 pg/mL (<450); Potassium 4.4 mmol/L (3.5-5.1); Protein, Total 7.9 g/dL (6.4-8.2); Sodium Level 137 mmol/L (136-145); Troponin (Emerg Dept Use Only) < 0.02 ng/mL (0.0-0.045)
--- NOTE | 2019-01-18 14:10 | RAD REPORT ---
EXAM DESCRIPTION: CT - Head Brain Wo Cont - 01/18/2019 2:03 pm CLINICAL HISTORY: PAIN Headache, drowsiness COMPARISON: No comparisons TECHNIQUE: All CT scans are performed using dose optimization technique as appropriate and may inclu de automated exposure control or mA/KV adjustment according to patient size. FINDINGS: No intracranial hemorrhage, hydrocephalus or extra-axial fluid collection.Moderate brain a trophy.No areas of brain edema or evidence of midline shift. The paranasal sinuses and mastoids are clear. The calvarium is intact. IMPRESSION: No acute intracranial abnormality.
[2019-01-18] MEDS ORDERED: METOCLOPRAMIDE 10 MG/2mL INJ ONE (14:14)
[2019-01-18] MEDS ORDERED: DIPHENHYDRAMINE 50 MG/ML VIAL ONE (14:15)
[2019-01-18] MEDS ORDERED: NA CHLORIDE 0.9% 1,000 ML ONE (14:15)
[2019-01-18] MEDS ORDERED: ACETAMINOPHEN 500 MG TAB ONE (14:15)
--- NOTE | 2019-01-18 14:25 | RAD REPORT ---
EXAM DESCRIPTION: RAD - Chest Single View - 01/18/2019 2:14 pm CLINICAL HISTORY: SOB Chest pain. COMPARISON: Chest Single View dated 09/13/2017 FINDINGS: Portable technique limits examination quality. The lungs are emphysematous but grossly clear. The heart is normal in size. No displaced fractures.Ce rvical hardware plate. IMPRESSION: No acute intrathoracic process suspected.
--- NOTE | 2019-01-18 15:19 | ER ---
Nurse's Notes [facility] Name: Keenan Mancuso Age: 78 yrs Sex: Female : 1940 Arrival Date: 01/18/2019 Time: 12:07 Bed 16 Private MD: Kin Colvin Diagnosis: Migraine;Essential (primary) hypertension Presentation: 01/18 12:51 Presenting complaint: Patient states: I have been feeling bad and have a HOOK, my BP was la1 reading very high at home (189 systolic). I have also been feeling more SOB lately. Transition of care: patient was not received from another setting of care. Onset of symptoms was January 18, 2019. Risk Assessment: Do you want to hurt yourself or someone else? Patient reports no desire to harm self or others. Initial Sepsis Screen: Does the patient meet any 2 criteria? No. Patient's initial sepsis screen is negative. Does the patient have a suspected source of infection? No. Patient's initial sepsis screen is negative. Care prior to arrival: None. 12:51 Method Of Arrival: Ambulatory la1 12:51 Acuity: JULIANE 2 la1 Historical: - Allergies: 12:50 Aspirin; la1 12:50 Codeine; la1 - Home Meds: 12:55 Actos Oral [Active]; Aspirin Oral [Active]; Celebrex Oral [Active]; losartan Oral rb1 [Active]; Metoprolol Tartrate Oral [Active]; Synthroid Oral [Active]; - PMHx: 12:50 Diabetes - NIDDM; High Cholesterol; Hypertension; Hypothyroidism; Renal Disease; la1 gastric ulcers; - Immunization history:: Adult Immunizations up to date. - Social history:: Smoking status: Patient/guardian denies using tobacco, Patient/guardian denies using alcohol, street drugs, The patient lives with family. - Ebola Screening: : No symptoms or risks identified at this time. - Family history:: not pertinent. Screenin:55 Abuse screen: Denies threats or abuse. Nutritional screening: No deficits noted. rb1 Tuberculosis screening: No symptoms or risk factors identified. Fall Risk None identified. Assessment: 12:55 General: Appears in no apparent distress. comfortable, Behavior is calm, cooperative, rb1 Denies fever. Pain: Complains of pain in abdomen Pain currently is 4 out of 10 on a pain scale. Pain began x 3 days. Neuro: Level of Consciousness is awake, alert, obeys commands, Oriented to person, place, time, situation. Cardiovascular: Capillary refill < 3 seconds is brisk in bilateral fingers. Respiratory: Airway is patent Respiratory effort is even, unlabored, Respiratory pattern is regular, symmetrical. GI: No signs and/or symptoms were reported involving the gastrointestinal system. : No signs and/or symptoms were reported regarding the genitourinary system. Derm: Skin is pink, warm \T\ dry. Musculoskeletal: Range of motion: intact in all extremities. 13:54 Reassessment: Patient appears in no apparent distress at this time. No changes from rb1 previously documented assessment. 14:41 Reassessment: Patient appears in no apparent distress at this time. Patient and/or rb1 family updated on plan of care and expected duration. Pain level reassessed. Patient is alert, oriented x 3, equal unlabored respirations, skin warm/dry/pink. 15:36 Reassessment: Patient appears in no apparent distress at this time. Patient and/or rb1 family updated on plan of care and expected duration. Pain level reassessed. Patient is alert, oriented x 3, equal unlabored respirations, skin warm/dry/pink. Patient states feeling better. Patient states symptoms have improved. Vital Signs: 12:50 BP 203 / 67; Pulse 75; Resp 16; Temp 98.4; Pulse Ox 100% on R/A; Weight 56.7 kg; Height la1 4 ft. 10 in. (147.32 cm); 13:40 BP 174 / 66; Pulse 70; Resp 16; Temp 98.1(O); Pulse Ox 100% on R/A; Pain 4/10; rb1 14:27 BP 173 / 68; Pulse 77; Resp 16; Pulse Ox 99% on R/A; Pain 5/10; rb1 15:20 BP 138 / 58; Pulse 70; Resp 15; Temp 98.0(O); Pulse Ox 100% ; Pain 2/10; rb1 12:50 Body Mass Index 26.12 (56.70 kg, 147.32 cm) la1 ED Course: 12:07 Patient arrived in ED. as 12:07 Kin Colvin MD is Private Physician. as 12:51 Arm band placed on right wrist. la1 12:52 Triage completed. la1 12:55 Patient has correct armband on for positive identification. Bed in low position. Call rb1 light in reach. threat monitoring analyst on. Pulse ox on. NIBP on. Warm blanket given. 13:05 Shannon Nassar, RN is Primary Nurse. rb1 13:10 Inserted saline lock: 22 gauge in right antecubital area, using aseptic technique. rb1 Blood collected. 13:24 Marc Green MD is Attending Physician. ma2 14:02 CT completed. Patient tolerated procedure well. Patient moved back from CT. mw3 14:03 CT Head Brain wo Cont In Process Unspecified. EDMS 14:10 XRAY Chest (1 view) In Process Unspecified. EDMS 15:37 No provider procedures requiring assistance completed. IV discontinued, intact, rb1 bleeding controlled, No redness/swelling at site. Pressure dressing applied. Administered Medications: 14:24 Drug: NS 0.9% 1000 ml Route: IV; Rate: 1 bolus; Site: right antecubital; rb1 15:20 Follow up: IV Status: Completed infusion rb1 14:24 Drug: Reglan 10 mg Route: IVP; Site: right antecubital; rb1 14:40 Follow up: Response: No adverse reaction rb1 14:24 Drug: Acetaminophen 1000 mg Route: PO; rb1 14:40 Follow up: Response: No adverse reaction rb1 14:24 Drug: Benadryl 50 mg Route: IVP; Site: right antecubital; rb1 14:40 Follow up: Response: No adverse reaction rb1 Outcome: 15:18 Discharge ordered by MD. ma2 15:37 Patient left the ED. rb1 15:37 Discharged to home ambulatory, with family. rb1 15:37 Condition: stable 15:37 Discharge instructions given to patient, Instructed on discharge instructions, follow up and referral plans. medication usage, Demonstrated understanding of instructions, follow-up care, medications, Prescriptions given X 2. Signatures: Dispatcher [employer] EDMS Eli Giles Lee RN RN la1 Shannon Nassar, RN RN rb1 Marc Green MD MD ma2 Nelly Hall mw3 Corrections: (The following items were deleted from the chart) 13:03 12:51 Presenting complaint: Patient states: I have been feeling bad and have a HOOK, my la1 BP was reading very high at home (189 systolic) la1
--- NOTE | 2019-01-18 15:20 | EDPHYS ---
Physician Documentation [facility] Name: Keenan Mancuso Age: 78 yrs Sex: Female : 1940 Arrival Date: 01/18/2019 Time: 12:07 Bed 16 Private MD: Kin Colvin ED Physician Marc Green HPI: 01/18 15:13 This 78 yrs old Female presents to ER via Ambulatory with complaints of High Blood ma2 Pressure. 15:13 The patient has elevated blood pressure and discovered this at home. Onset: The ma2 symptoms/episode began/occurred gradually, 2 day(s) ago. Associated signs and symptoms: Pertinent positives: Pertinent negatives: dizziness, dyspnea, headache, nausea, vomiting. Severity of symptoms: At its worst the blood pressure was mild, in the emergency department the blood pressure is unchanged. Historical: - Allergies: 12:50 Aspirin; la1 12:50 Codeine; la1 - Home Meds: 12:55 Actos Oral [Active]; Aspirin Oral [Active]; Celebrex Oral [Active]; losartan Oral rb1 [Active]; Metoprolol Tartrate Oral [Active]; Synthroid Oral [Active]; - PMHx: 12:50 Diabetes - NIDDM; High Cholesterol; Hypertension; Hypothyroidism; Renal Disease; la1 gastric ulcers; - Immunization history:: Adult Immunizations up to date. - Social history:: Smoking status: Patient/guardian denies using tobacco, Patient/guardian denies using alcohol, street drugs, The patient lives with family. - Ebola Screening: : No symptoms or risks identified at this time. - Family history:: not pertinent. ROS: 15:13 Constitutional: Negative for fever, chills, and weight loss. ma2 15:13 All other systems are negative. Exam: 15:13 Constitutional: This is a well developed, well nourished patient who is awake, alert, ma2 and in no acute distress. Head/Face: Normocephalic, atraumatic. Eyes: Pupils equal round and reactive to light, extra-ocular motions intact. Lids and lashes normal. Conjunctiva and sclera are non-icteric and not injected. Cornea within normal limits. Periorbital areas with no swelling, redness, or edema. Neck: Trachea midline, no thyromegaly or masses palpated, and no cervical lymphadenopathy. Supple, full range of motion without nuchal rigidity, or vertebral point tenderness. No Meningismus. Chest/axilla: Normal chest wall appearance and motion. Nontender with no deformity. No lesions are appreciated. Cardiovascular: Regular rate and rhythm with a normal S1 and S2. No gallops, murmurs, or rubs. Normal PMI, no JVD. No pulse deficits. Respiratory: Lungs have equal breath sounds bilaterally, clear to auscultation and percussion. No rales, rhonchi or wheezes noted. No increased work of breathing, no retractions or nasal flaring. Abdomen/GI: Soft, non-tender, with normal bowel sounds. No distension or tympany. No guarding or rebound. No evidence of tenderness throughout. Vital Signs: 12:50 BP 203 / 67; Pulse 75; Resp 16; Temp 98.4; Pulse Ox 100% on R/A; Weight 56.7 kg; Height la1 4 ft. 10 in. (147.32 cm); 13:40 BP 174 / 66; Pulse 70; Resp 16; Temp 98.1(O); Pulse Ox 100% on R/A; Pain 4/10; rb1 14:27 BP 173 / 68; Pulse 77; Resp 16; Pulse Ox 99% on R/A; Pain 5/10; rb1 15:20 BP 138 / 58; Pulse 70; Resp 15; Temp 98.0(O); Pulse Ox 100% ; Pain 2/10; rb1 12:50 Body Mass Index 26.12 (56.70 kg, 147.32 cm) la1 MDM: 13:24 Patient medically screened. ma2 15:13 Differential diagnosis: intracerebral hemorrhage, MILD MIGRAIN VS TENSION HEADACHE. ma2 Data reviewed: vital signs, nurses notes. Counseling: I had a detailed discussion with the patient and/or guardian regarding: the historical points, exam findings, and any diagnostic results supporting the discharge/admit diagnosis, the presence of at least one elevated blood pressure reading (>120/80) during this emergency department visit, the need for outpatient follow up. Response to treatment: the patient's symptoms have resolved after treatment. ED course: HEADACHE WAS GRADUAL AND HAS HAD IT BEFORE . 01/18 13:03 Order name: Basic Metabolic Panel la1 01/18 13:03 Order name: CBC with Diff; Complete Time: 15:06 hi01/18 13:03 Order name: LFT's; Complete Time: 15:06 hi01/18 13:03 Order name: Magnesium; Complete Time: 15:06 hi01/18 13:03 Order name: NT PRO-BNP; Complete Time: 15:06 hi01/18 13:03 Order name: PT-INR; Complete Time: 15:06 hi01/18 13:03 Order name: Troponin (emerg Dept Use Only); Complete Time: 15:06 hi01/18 13:03 Order name: XRAY Chest (1 view); Complete Time: 15:06 hi01/18 13:05 Order name: Basic Metabolic Panel; Complete Time: 15:06 EDMS 01/18 13:24 Order name: CT Head Brain wo Cont; Complete Time: 15:06 ma2 01/18 14:04 Order name: Urine Dipstick--Ancillary (enter results) eb 01/18 13:03 Order name: EKG; Complete Time: 13:05 hi01/18 13:03 Order name: Cardiac monitoring; Complete Time: 15:00 hi01/18 13:03 Order name: EKG - Nurse/Tech; Complete Time: 15:00 hi01/18 13:03 Order name: IV Saline Lock; Complete Time: 14:03 hi01/18 13:03 Order name: Labs collected and sent; Complete Time: 14:03 hi01/18 13:03 Order name: O2 Per Protocol; Complete Time: 14:03 [facility] 01/18 13:03 Order name: O2 Sat Monitoring; Complete Time: 14:03 la Administered Medications: 14:24 Drug: NS 0.9% 1000 ml Route: IV; Rate: 1 bolus; Site: right antecubital; rb1 15:20 Follow up: IV Status: Completed infusion rb1 14:24 Drug: Reglan 10 mg Route: IVP; Site: right antecubital; rb1 14:40 Follow up: Response: No adverse reaction rb1 14:24 Drug: Acetaminophen 1000 mg Route: PO; rb1 14:40 Follow up: Response: No adverse reaction rb1 14:24 Drug: Benadryl 50 mg Route: IVP; Site: right antecubital; rb1 14:40 Follow up: Response: No adverse reaction rb1 Disposition: 01/18/19 15:18 Discharged to Home. Impression: Migraine, Essential (primary) hypertension. - Condition is Stable. - Discharge Instructions: Hypertension, Managing Your Hypertension. - Prescriptions for Reglan 10 mg Oral Tablet - take 1 tablet by ORAL route every 6 hours . take 30 minutes before meals and at bedtime; 100 tablet. Ativan 0.5 mg Oral Tablet - take 1 tablet by ORAL route every 8 hours As needed; 20 tablet. - Medication Reconciliation Form, Thank You Letter, Antibiotic Education, Prescription Opioid Use form. - Follow up: Private Physician; When: Tomorrow; Reason: Continuance of care. Signatures: Dispatcher [employer] EDMS Gomez Ruiz RN RN la1 Shannon Nassar RN RN rb1 Marc Green MD MD ma2 Corrections: (The following items were deleted from the chart) 15:37 15:18 01/18/2019 15:18 Discharged to Home. Impression: Migraine; Essential (primary) rb1 hypertension. Condition is Stable. Prescriptions for Reglan 10 mg Oral Tablet - take 1 tablet by ORAL route every 6 hours . take 30 minutes before meals and at bedtime; 100 tablet. and Forms are Medication Reconciliation Form, Thank You Letter, Antibiotic Education, Prescription Opioid Use. Follow up: Private Physician; When: Tomorrow; Reason: Continuance of care. ma2
[2019-01-18 15:54] VITALS: TEMP 98.4
[2019-01-18 15:56] VITALS: BP 173/68; O2SAT 99
[2019-01-18 18:08] LABS: Urine Glucose NEGATIVE (NEG); Urine Specific Gravity 1.015 (1.005-1.030)
[2019-01-18 18:09] LABS: Urine Blood TRACE (NEG); Urine Protein 2+ (NEG); Urine pH 8.5 (5.0-7.0)
--- NOTE | 2019-01-19 13:20 | EKG ---
Test Date: 2019-01-18 Test Time: 14:17:20 Autism Tutor: MEASUREMENT RESULTS: Intervals: Rate: 72 DC: 160 QRSD: 80 QT: 404 QTc: 442 [place]: P: 12 DC: 160 QRS: 61 T: 47 INTERPRETIVE STATEMENTS: Normal sinus rhythm Septal infarct, age undetermined Abnormal ECG Compared to ECG 09/13/2017 22:54:39 Myocardial infarct finding now present Electronically Signed On 01-19-19 13:18:40 CDT by Atif Roman
== END 2019-01-18 15:37 | disposition home or self-care (01) ==
LOC: ER 12:07
DX: G43.909 Migraine, unspecified, not intractable, without status migrainosus (principal); I10 Essential (primary) hypertension; Z88.6 Allergy status to analgesic agent; E11.9 Type 2 diabetes mellitus without complications; E78.00 Pure hypercholesterolemia, unspecified
CPT/HCPCS: 96361; 93005; 85025; 80048; 36415; 83735; 85610; 80076; 81003; 84484; 83880; 70450; 71045; 96375; 96374; 99285; J2765; J7030